=== PATIENT | female | born 1980 | race American Indian/Alaskan Native ===

== ENCOUNTER 2024-10-27 10:55 | Outpatient (AMB) | payer MEDICAID, SELFPAY ==
--- NOTE | 2024-10-27 11:14 | A.OFFVIS_ITS ---
Intake Visit Reasons: overactive bladder Intake Note: New Patient presents for initial visit for urinary frequency and urinary leakage Urology Medications: none Blood Thinner: none PVR: 0ml's Laminating Machine Operator Required: No Accompanied by: Self / Same As Patient Allergies No Known Allergies Allergy (Verified 10/27/24 11:49) Medication List - Last Reconciled 10/27/24 by RENE Jacobs albuterol sulfate 90 mcg/actuation (Ventolin HFA) 2 puffs inhalation Q4-6H PRN budesonide-formoterol 80-4.5 mcg/actuation (Symbicort) 2 puffs inhalation BID ketoconazole 2% appl topical BID PRN silver sulfadiazine 1% (SSD) appl topical DAILY HPI Comments Details: Solange is a very pleasant 44-year-old female patient of Dr. Ritter. She has a past medical history of migraines, endometriosis, moderate persistent allergic asthma, and obesity. She presents to the office today as a new patient for ongoing lower urinary tract symptoms she has been experiencing. In discussion with the patient today she reports noting stress incontinence, urinary urgency, urinary frequency, and episodes of nocturia up to 2-3 times per night. She reports symptoms have been present for approximately 6 months. She does report a history of 5 C-sections. She otherwise denies hematuria, dysuria, foul smelling urine, changes to urinary stream, flank pain, fever, and or chills. In office urinalysis results reviewed with the patient today. PVR 0 mL. We discussed at length potential causes of lower urinary tract symptoms patient was experiencing as well as further workup. We discussed pelvic floor exercises as well as bladder diary. We discussed further treatment options to include pelvic floor therapy, medications, and or in office urodynamics for further assessment evaluation. Will obtain retroperitoneal ultrasound for further assessment evaluation. She otherwise offers no other issues or concerns at this time. [facility] Medical History (Updated 10/27/24 @ 11:54 by RENE Jacobs) History of wheezing History of bronchitis History of migraine History of abnormal cervical Papanicolaou smear Endometriosis Orgasmic headache Moderate persistent allergic asthma Other headache syndrome History of smoking Obesity Surgical History (Updated 10/15/24 @ 08:57 by Cal Butler) History of tubal ligation Hx of cholecystectomy H/O section Review of Systems Const All systems reviewed & are unremarkable except as noted in HPI and below Physical Exam Const General: cooperative, healthy appearing, comfortable, no acute distress, well developed, alert and awake Nutritional Appearance: overweight Orientation/consciousness: patient oriented x3 Limitations: no limitations HEENT Head: Yes normal to inspection, Yes normocephalic and Yes atraumatic Ears: hearing grossly normal bilaterally Eyes General: appearance normal, both eyes and all related structures Neck Neck: Yes normal visual inspection and Yes trachea midline Chest Chest palpation & inspection: normal inspection of the chest Resp Effort & Inspection: normal respiratory effort and able to speak in complete sentences Cardio Rate: regular rate GI Inspection: Yes normal to inspection General: Yes no CVA tenderness Back/Spine/Pelvis Back: no CVA tenderness Skin General skin exam: no rashes or lesions noted Neuro General: patient oriented x3 Extrem General: Yes normal to inspection Psych Appearance: grossly normal and well kempt Mental Status: mental status grossly normal Speech and movement: Normal speech and movement present and Clear speech present Affect: normal affect Attitude: cooperative Thought process: Normal thought process present Thought content: Normal thought content present Insight: Fair insight present (Psych) Judgement: Fair judgement present (Psych) Office Procedures Post Void Residual Post Residual Void Post Void Residual (PVR): 0 [id number]-[id number] Void Residual by ultrasound Results AMB Urinalysis, Automated UA Leukoctes 0 Olamide/uL Last Edit by Cal Butler on 10/27/24 12:05 UA Nitrite Last Edit by Cal Butler on 10/27/24 12:05 UA Urobilinogen 0.2 mg/dL Last Edit by Cal Butler on 10/27/24 12:05 UA Protein 30 mg/dL Last Edit by Cal Butler on 10/27/24 12:05 UA pH 6.0 Last Edit by Cal Butler on 10/27/24 12:05 UA Blood 0 Segundo/uL Last Edit by Cal Butler on 10/27/24 12:05 UA Specific [place] 1.030 Last Edit by Cal Tanyasue on 10/27/24 12:05 UA Ketone Positive Last Edit by Chuyirvingricky Martínezsue on 10/27/24 12:05 UA Bilirubin 1 mg/dL Last Edit by Cal Tanyasue on 10/27/24 12:05 UA Glucose 0 mg/dL Last Edit by Cal Tanyasue on 10/27/24 12:05 Results Reviewed Results Reviewed: Laboratory Last Values Urine pH (Auto) 6.0 10/27/24 12:03 Specific [place] (Auto) 1.030 10/27/24 12:03 Urine Protein (Auto) 30 mg/dL 10/27/24 12:03 Glucose (UA)(Auto) 0 mg/dL 10/27/24 12:03 Urine Ketones (Auto) Positive 10/27/24 12:03 Urine Blood (Auto) 0 Segundo/uL 10/27/24 12:03 Urine Bilirubin (Auto) 1 mg/dL 10/27/24 12:03 Urine Urobilinogen (Auto) 0.2 mg/dL 10/27/24 12:03 Leukocyte Esterase (Auto) 0 Olamide/uL 10/27/24 12:03 Assessment & Plan Assessment & Plan (1) Stress incontinence: Code(s): N39.3 - Stress incontinence (female) (male) Category: Medical (2) Urinary urgency: Code(s): R39.15 - Urgency of urination Category: Medical (3) Urinary frequency: Code(s): R35.0 - Frequency of micturition Category: Medical (4) Nocturia: Code(s): R35.1 - Nocturia Category: Medical Plan In office urinalysis results reviewed with the patient today; as noted above. PVR 0 mL. We discussed obtaining retroperitoneal ultrasound for further assessment evaluation. We discussed bladder triggers/irritants. Discussed importance of limiting fluids 2-3 hours prior to bed to decrease episodes of nocturia. We discussed further intervention to include pelvic floor therapy, medications, and or in office urodynamics for further assessment evaluation. She would like to think about further treatment options that were discussed; information provided Follow-up in 1-3 months with imaging to be completed prior; or sooner with any issues, concerns, and or questions. Orders: Orders US retroperitoneal comp Today N39.3 - Stress incontinence (female) (male) AMB Post Void Residual by ultrasound Today R35.0 - Frequency of micturition AMB Urinalysis Automated Today Z13.9 - Encounter for screening, unspecified Patient Instructions: The patient had an opportunity to ask questions regarding the treatment plan. All questions were answered. Physical exam, labs, and imaging were discussed and reviewed in detail. As well as risks, benefits, and discussion of treatment choices. No major barriers to understanding were identified. The patient expressed understanding and agreement with the above treatment plan. The patient was made aware they should contact our office by phone for worsening of their current condition, the appearance of new symptoms, or with any questions or concerns. Compliance is encouraged with any medications and follow up testing that is ordered. It is a privilege to be allowed the opportunity to participate in? your urological care.? Again, if you have any questions or concerns If you have any questions or concerns please do not hesitate to contact me. The office is [phone]. This note is constructed using voice recognition software. While every effort has been made to ensure accuracy linseed oil temperer errors may have been included. Yours sincerely, RENE Jacobs Coding Level of Care Code New Pt Level 3 (30343) Diagnoses Stress incontinence N39.3 Urinary urgency R39.15 Urinary frequency R35.0 Nocturia R35.1 CPT Codes Post Residual Void - PVR CPT Code: 99231-Cvlc Void Residual by ultrasound ([id number])
== END 2024-10-27 11:51 | disposition home or self-care (01) ==
PROVIDERS: PCP Physician Assistant Medical; Visit Provider Nurse Practitioner Family
DX: N39.3 Stress incontinence (female) (male) (principal); R39.15 Urgency of urination; R35.0 Frequency of micturition; R35.1 Nocturia; Z13.9 Encounter for screening, unspecified
CPT/HCPCS: 99203

== ENCOUNTER → 2024-10-27 10:55 | Outpatient (BNVA) | payer MEDICAID, SELFPAY | PROVIDERS: PCP Physician Assistant Medical; Visit Provider Nurse Practitioner Family | DX: N32.81 Overactive bladder (principal); N39.3 Stress incontinence (female) (male); R39.15 Urgency of urination; R35.0 Frequency of micturition; R35.1 Nocturia | CPT/HCPCS: 51798; 81003; 99212 ==

== ENCOUNTER 2024-12-17 10:43 | Outpatient (REF) | payer MEDICAID, SELFPAY ==
--- NOTE | ~2024-12-17 | US_ITS ---
CLINICAL HISTORY: N39.3 - Stress incontinence (female) (male) US Renal Comparison: None Findings: Right kidney normal size and echotexture, 12.7 cm length. Left kidney normal size and echotexture, 11.8 cm length. No hydronephrosis of either kidney. Normal color Doppler. Urinary bladder is unremarkable. Prevoid volume 460 mL. Postvoid volume 37 mL. Bilateral ureteral jets are visualized. IMPRESSION: No hydronephrosis. Postvoid residual volume of 37 mL. This document has been electronically signed by: Tonya Maldonado MD on 12/18/2024 12:38:58
--- OUTSIDE RECORDS SUMMARY | 2024-12-17 11:21 | XMS_ITS | Encounter Summary ---
Author Organization [facility] Address [address] [place] [address] Care Team Providers Care Steak Sauce Maker Name Role Phone Chiara Ritter Primary Care Provider [phone] Reason for Visit * Reason Onset Date Comments DME 11/19/2024 Nebulizer cherelle e Encounter Details Date Type Department Care Team (Late Contact Info) Description [facility] [address] [phone] Brittanie Little MA DME (Nebulizer machine) Social History Tobacco Use Types Packs/Day Years Used Date Smoking Tobacco: Never Smokeless Tobacco: Never Comments No Sex and Gender Information Value Date Recorded Sex Assigned at Not on file Legal Sex Female 1:51 PM EST Gender Identity Not on file Sexual Orientation Not on file documented as of this encounter Progress Notes * Brittanie Ny MA - 11/19/2024 11:16 AM EST Patient called to informed that her nebulizer machine was sent to [facility] but they not accepting [facility]. Order printed and sent to [facility] patient informed documented in this encounter Plan of Treatment Upcoming Encounters Date Type Department Care Team (Late st Contact Info) Description 01/14/2025 12:30 PM EDT Ancillary Procedure [facility] [address] [place] [phone] 02/20/2025 9:45 AM EDT [facility] [address] [facility] [address] [place] [phone] Ketty Wright MD [address] [place] [address] [address] [place] [address] documented as of this encounter Visit Diagnoses Not on filedocumented in this encounter Care Teams Steak Sauce Maker Relationship Specialty Start Date End Date Chiara Ritter PA [address] [place] [address] PCP - General 08/26/24 documented as of this encounter
--- OUTSIDE RECORDS SUMMARY | 2024-12-17 11:21 | XMS_ITS | Clinical Summary ---
Author Organization [facility] Address [address] [place] [address] Care Team Providers Care Hrbp Name Role Phone Chiara Ritter PA-C Primary Care Provider Source Comments PLEASE NOTE, if this patient is a minor, it may be UNLAWFUL to discuss sensitive information that is contained in these records (such as FAMILY PLANNING, MENTAL HEALTH or SUBSTANCE ABUSE) with the minor patient's parent or other person without the patient's specific authorization.[facility] Allergies No known active allergies Medications cyclobenzaprine (FLEXERIL) 10 mg tablet TK 1 T PO TID PRN 0 9 Active naproxen (NAPROSYN) 500 mg tablet TK 1 T PO BID PRF PAIN 0 9 Active acetaminophen (TYLENOL) 500 mg tabletIndications :Other headache syndrome Take 1 Tab by mouth every 8 (eight) hours as needed for pain DO NOT take more than 3 (three) times in a 24 hour period. 60 Tab 3 9 Active topiramate (TOPAMAX) 50 mg tabletIndications :Other headache syndrome Take 1 Tab by mouth nightly at bedtime 30 Tab 3 0 Active diclofenac sodium (VOLTAREN) 1 % gel MELISSA 4 GRAMS EXT AA TID 0 Active betamethasone dipropionate (DIPROLENE) 0.05 % ointment APPLY TO THE AFFECTED AREA ON HANDS TWICE DAILY FOR TWO WEEKS THEN BREAK FOR ONE WEEK REPEAT NEEDED FLARES 2 Active triamcinolone (KENALOG) 0.1 % cream APPLY TOPICALLY TO THE AFFECTED AREA TWICE DAILY FOR 10 DAYS 2 Active fluticasone propion-salmetero L (AIRDUO RESPICLICK) 232-14 mcg/actuation aepbIndications:H istory of wheezing,Moderate persistent asthma without complication Inhale 1 Inhalation. into the lungs 2 (two) times daily 1 Each 5 3 Active mirabegron ER (MYRBETRIQ) 25 mg [id number]:S tress incontinence Take 1 Tablet by mouth nightly at bedtime for 90 days 30 Tablet 2 3 Active fluoride, sodium, (SF 5000 PLUS) 1.1 % creaIndications:C tay of enamel (incipient) Anderson twice daily with toothpaste then expectorate. Do not rinse. 51 g 3 3 Active ketoconazole (NIZORAL) 2 % cream APPLY TO AFECTED AREAS IN THE GROIN TWICE DAILY NEEDED 4 Active hydrocortisone 1 % cream APPLY TOPICALLY TO THE AFFECTED AREA TWICE DAILY FOR 14 DAYS 3 Active albuterol HFA 90 mcg/actuation inhalerIndication s:Moderate persistent asthma without complication Inhale 2 Puffs into the lungs every 4 to 6 (four to six) hours as needed for wheezing or shortness of breath 18 g 2 4 Active budesonide-formot Anjana (SYMBICORT) 80-4.5 mcg/actuation inhalerIndication s:Moderate persistent asthma with acute exacerbation Inhale 2 Puffs into the lungs 2 (two) times daily 10.2 g 2 4 Active predniSONE (DELTASONE) 20 mg tabletIndications :Moderate persistent asthma with acute exacerbation Take 1 Tablet by mouth once daily 5 Tablet 4 Active Active Problems Problem Noted Date Diagnosed Date History of abnormal cervical Papanicolaou smear 11/16/2022 History of migraine 11/16/2022 H/O bronchitis 11/16/2022 Orgasmic headache 09/28/2020 Moderate persistent asthma 01/23/2020 Other headache syndrome 08/04/2019 Endometriosis 11/04/2018 Obesity (BMI 30-39.9) 10/06/2016 Hx of smoking 10/06/2016 Resolved Problems Problem Noted Date Diagnosed Date Resolved Date History of wheezing 08/04/2019 01/23/20 20 Encounters Date Type Department Care Team Description 10/02/2024 3:20 PM EST Office Visit [address] [address] Chiara Ritter PA-C Moderate persistent asthma with acute exacerbation (Primary Dx) 10/02/2024 Travel from Last 3 Months Immunizations Name Administration Dates Next Due Flu, Preservative Free 08/09/2023,2022,12/20/2021,09/24 Hep B,adult,adjuvanted (HEPLISAV) 08/21/2024,09/2023 INFLUENZA, SEASONAL, INJECTABLE 09/05/2018 INFLUENZA, SEASONAL, INJECTA BLE, PRESERVATIVE FREE 10/06/2016 Influenza (FLUBLOK),recombinant,injectable,prese rvative Free 08/21/2024 Moderna COVID-19 Vaccine, re d cap blue label, 12+ Primary Series 01/21/2022,03/17/2021,02/17/2021 PNEUMOCOCCAL CONJUGATE PCV 2 0 (Prevnar) 08/09/2023 PNEUMOCOCCAL POLYSACCHARIDE PPV23 12/20/2021 TDAP 08/20/2018 Family History Medical History Relation Name Comments No Known Problems Brother No Known Problems Daughter 1 No Known Problems Daughter 2 No Known Problems Daughter 3 Asthma Father Diabetes Father Migraines Maternal Grandmother Cancer Maternal Uncle lung ca Thyroid Disease Mother Cancer Paternal Grandfather colon c a No Known Problems Sister Other (See Comments) Son 1 autism No Known Problems Son 2 Relation Name Status Comments Brother Alive Daughter 1 Alive Daughter 2 Alive Daughter 3 Alive Father Alive Maternal Grandmother Maternal Uncle Mother Alive Paternal Grandfather Sister Alive Son 1 Alive Son 2 Alive Social History Tobacco Use Types Packs/Day Years Used Date Smoking Tobacco: Former Cigarettes Smokeless Tobacco: Former Quit: 2018 Tobacco Cessation:Counseling Given: No Alcohol Use Standard Drinks/Week Comments Yes 0 (1 standard drink = 0.6 oz pur e alcohol) occasionally Social Connections Answer Date Recorded Connectedness 1 04/28/2024 Financial Resource Strain Answer Date R ecorded Financial Resource Strain 1 2023 Stress Answer Date Recorded Stress 1 04/28/2024 Physical Activity Answer Date Recorded Physical Activity 0 06/21/2019 Food Insecurity Answer Date Recorded Food 1 04/28/2024 Transportation Needs Answer Date Record ed Transportation 1 04/28/2024 Housing Stability Answer Date Recorded Housing 2 04/28/2024 Safety and Environment Answer Date Moar rded Safety 1 04/28/2024 Utilities Answer Date Recorded Utilities 1 04/28/2024 Employment Answer Date Recorded Stress 0 01/16/2022 Comments No Sex and Gender Information Value Date Recorded Sex Assigned at Female 08/04/2019 9:04 AM PDT Legal Sex Female 11:36 AM PDT Gender Identity Female 08/04/2019 9:04 AM PDT Sexual Orientation Straight 08/04/2019 9: 04 AM PDT Occupation Industry Job Start Date Job End Date Not on file Not on file Not on file Not on file Last Filed Vital Signs Vital Sign Reading Time Taken Comments Blood Pressure 122/80 10/02/2024 3:46 PM EST Pulse 81 10/02/2024 3:46 PM EST Temperature 36.6 ??C (97.8 ??F) 10/02/2024 3:46 PM ES T Respiratory Rate 16 10/02/2024 3:46 PM EST Oxygen Saturation 97% 10/02/2024 3:46 PM EST Inhaled Oxygen Concentration - - Weight 93.3 kg (205 lb 9.6 oz) 10/02/2024 3:46 P M EST Height 160 cm (5' 3 ) 10/02/2024 3:46 PM EST Body Mass Index 36.42 10/02/2024 3:46 PM EST Plan of Treatment Health Maintenance Due Date Last Done Comments HPV Screening 1981 Hepatitis C Screening 1981 Lipid Screening 1981 HIV Screening 1996 Alcohol and Drug Screen 10/29/2024 04/28/20 24, 08/09/2023, 12/20/2021, Additional history exists Depression Annual Screen 10/29/2024 04/28/2024, 07/29 Dental BW 12/14/2024 12/12/2023, 08/0 10/2022, 04/27/2022 Dental Examination 12/14/2024 12/12/2023, 0 05/29/2023, 04/27/2022 Dental Perio Charting 12/14/2024 12/12/2023, 022 Dental Prophy 12/14/2024 12/12/2023, 04/27/2022 [id number] ( season) 2025 01/21/2022, 03/17/2021, 02/17/2021 Postponed from 06/29/2024 (Patient postponement) Relationship Safety Screening/Counseling 04/28/2025 04/28/2024, 08/09/2023, 12/20/2021, Additional history exists Tobacco Screening 04/28/2025 04/28/2024 Annual Preventive Care Visit 08/21/2025 08/21/2024, 08/09/2023, 11/16/2022, Additional history exists Hypertension Screening (#1) 10/02/2025 Breast Cancer Screening (Mammogram) 11/11/2025 11/11/2024, 11/11/2024 Cervical Cancer Screening 11/16/2025 Pap + HPV 11/16/2025 11/16/2022 Pap Smear 11/16/2025 11/16/2022 Diabetes Screening 08/09/2026 08/09/2023, 08/09/2023 Dental FMX/Pano 05/31/2028 05/29/2023 Imm-DTaP/Tdap/Td (2 - Td or Tdap) 08/20/2028 08/20/2018 Imm-Pneumococcal Completed 08/09/2023, 12/20/2021 Imm-Hepatitis B Completed 08/21/2024, 08/09/2023 Imm-Influenza Completed 08/21/2024, 07/29, 11/16/2022, Additional history exists Cervical Ablation/Cold-Knife Conization Discontinued Cervical Cryotherapy Discontinued Colposcopy Discontinued Endometrial Biopsy Discontinued Excision/Leep Discontinued HPV Genotyping Discontinued Vaginal Pap Discontinued Vulvoscopy Discontinued Procedures Procedure Name Priority Date/Time Associated Diagnosis Comments REFERRAL FOR MAMMOGRAM Routine 11/11/2024 3:00 AM EST Breast cancer screening by mammogram IMAGING SCANNED DOCUMENT 11/05/2024 3:00 AM EST REFERRAL SCANNED DOCUMENT 10/27/2024 3:00 AM EST COMP PERIODONTAL EVALUATION - NEW/EST PATIENT Routine 12/12/2023 9:00 AM EST Encounter for dental examination BITEWINGS - FOUR RADIOGRAPHIC IMAGES Routine 12/12/2023 9:00 AM EST Encounter for dental examination PROPHYLAXIS - ADULT Routine 12/12/2023 9 :00 AM EST Encounter for dental examination PERIODIC ORAL EVALUATION ESTABLISHED PATIENT Routine 12/12/2023 9:00 AM EST Encounter for dental examination COMPREHENSIVE METABOLIC PANEL Routine 08/09/2023 10:04 AM EDT Obesity (BMI 30-39.9) INTRAORAL - COMP SERIES OF RADIOGRAPHIC IMAGES Routine 05/29/2023 11:00 AM EDT Caries of enamel (incipient) Caries Encounter for dental examination THINPREP PAP & HPV MRNA E6/E7 RFLX HPV 16,18/[address]/NG Routine 11/16/2022 1:22 PM EST Papanicolaou test, as part of routine gynecological examination Papanicolaou smear for cervical cancer screening from Last 3 Months or Most Recently Relevant to Health Maintenance Results * REFERRAL FOR MAMMOGRAM (11/11/2024 3:00 AM EST) 11/11/2024 3:00 AM EST us [email or web address] Ritter PA-C IMG RFL MAMMO Final Result * IMAGING SCANNED DOCUMENT (11/05/2024 3:00 AM EST) 11/05/2024 3:00 AM EST us [email or web address] Ritter PA-C SCAN IMAGING Final Result * REFERRAL SCANNED DOCUMENT (10/27/2024 3:00 AM EST) 10/27/2024 3:00 AM EST us [email or web address] Ritter PA-C SCAN REFERRAL Final Result * (ABNORMAL) COMPREHENSIVE METABOLIC PANEL (08/09/2023 10:04 AM EDT) GLUCOSE 98 65 - 139 mg/dL [facility] Comment: ?Non-fasting reference interval UREA NITROGEN (BUN) 11 7 - 25 mg/dL [facility] CREATININE (blood) 0.49(L) 0.50 - 0.99 mg/dL [facility] EGFR 121 > OR = 60 mL/min/1. 73m2 [facility] BUN/CREATININE RATIO 22 6 - 22 (calc) [employer] [facility] SODIUM 137 135 - 146 mmol/L [employer] [facility] POTASSIUM 4.4 3.5 - 5.3 mmol/L [employer] [facility] CHLORIDE 104 98 - 110 mmol/L [employer] [facility] CARBON DIOXIDE 28 20 - 32 mmol/L [employer] [facility] CALCIUM 9.2 8.6 - 10.2 mg/dL [employer] [facility] PROTEIN, TOTAL 7.2 6.1 - 8.1 g/dL [employer] [facility] ALBUMIN 4.0 3.6 - 5.1 g/dL [employer] [facility] GLOBULIN 3.2 1.9 - 3.7 g/dL (calc) [employer] [facility] ALBUMIN/GLOBULI N RATIO 1.3 1.0 - 2.5 (calc) [employer] [facility] BILIRUBIN, TOTAL 0.3 0.2 - 1.2 mg/dL [employer] [facility] ALKALINE PHOSPHATASE 56 31 - 125 U/L [employer] [facility] AST 14 10 - 30 U/L [employer] [facility] ALT 19 6 - 29 U/L [employer] [facility] Blood Blood / Unknown 08/09/2023 1 0:04 AM EDT 08/09/2023 10:04 AM EDT Narrative [facility] - 08/10/2023 1:25 AM EDT FASTING:NO Yanni P[facility] - BLOOD DRAW Edited Result - Final [employer] [address] [address], [employer] [address] [id number] * THINPREP PAP & HPV MRNA E6/E7 RFLX HPV 16,18/[address]/NG (11/16/2022 1:22 PM EST) CHLAMYDIA TRACHOMATIS RNA, TMA NOT DETECTED NOT DETECTED [employer] [facility] NEISSERIA GONORRHOEAE RNA, TMA NOT DETECTED NOT DETECTED [employer] [facility] COMMENT [employer] [facility] CLINICAL INFORMATION See Note [employer] [facility] Comment:ROUTINE EXAM LMP See Note [employer] [facility] Comment:[id number] PREV. PAP [employer] [facility] PREV. BX [employer] [facility] SOURCE See Note [employer] [facility] Comment:Cervix STATEMENT OF ADEQUACY See Note [employer] [facility] Comment: Satisfactory for evaluation. Endocervical/transformation zone component absent. INTERPRETATION/RESU LT See Note [employer] [facility] Comment:Negative for intraep ithelial lesion or malignancy. INFECTION See Note [employer] [facility] Comment: Shift in vaginal johnnie suggestive of bacterial vaginosis. [employer] PRES[employer] TE[employer]ER See Note [facility] [employer] Comment: KN, CT(ASCP) CT screening location: [address] ??[id number] COMMENT [employer] [facility] HPV MRNA E6/E7 Not Detected Not Detected [employer] [facility] Comment: Methodology: Continuous Improvement Intern-Mediated Amplification This assay detects E6/E7 viral messenger RNA (mRNA) from 14 high-risk HPV types (16,18,31,33,35,39,45,51,52,56,58,59,66,68). Cervical sources are required for HPV testing. If a vaginal source from a patient who has had a total hysterectomy with removal of cervix was submitted, please contact the testing laboratory for alternative testing options. For additional information, please refer to http://[employer]/faq/LUE296b8 (This link if provided for information/ educational purposes only.) Swab Endocervical structure / Unknown 11/16/2022 1:22 PM EST 11/17/2022 6:51 AM EST Narrative [employer] [facility] - 11/24/2022 8:30 PM EST EXPLANATORY NOTE: The Pap is a screening test for cervical cancer. It is not a diagnostic test and is subject to false negative and false positive results. It is most reliable when a satisfactory sample, regularly obtained, is submitted with relevant clinical findings and history, and when the Pap result is evaluated along with historic and current clinical information. The analytical performance characteristics of this assay, when used to test SurePath(TM) specimens have been determined by [employer]. The modifications have not been cleared or approved by the FDA. This assay has been validated pursuant to the CLIA regulations and is used for clinical purposes. For additional information, please refer to https://[employer]/faq/FXM118 (This link is being provided for information/ educational purposes only.) Chiara Ritter PA-C LAB - NO BLOOD DRAW Final Re sult [facility] [address] [facility] [address] [place] [address], [facility] [address] [facility] ([address]) [place] [address] from Last 3 Months or Most Recently Relevant to Health Maintenance Insurance HEALTH SAF[employer]Y NET DENTAL [facility] [place] [address] [employer] Care Teams Hrbp Relationship Specialty Start Date End Date Chiara Ritter PA-C [address] [place] [address] PCP - General FAMILY MEDICINE PA 09/05/21
--- OUTSIDE RECORDS SUMMARY | 2024-12-17 11:21 | XMS_ITS | Clinical Summary ---
Author Organization [facility] Address [address] [place] [address] Phone Care Team Providers Care Batteryman Name Role Phone Chiara Ritter Primary Care Provider [phone] Allergies Active Allergy Reactions Criticality Noted Date Comments Dermatitis Antigens 10/14/2024 Medications acetaminophen (TYLENOL) 500 mg tablet Take 1 tablet (500 mg total) by mouth every 8 hours as needed. 9 Active albuterol HFA (PROAIR HFA ; PROVENTIL HFA ; VENTOLIN HFA) 90 mcg/actuation inhaler Inhale 2 puffs by mouth. 4 Active budesonide-form oteroL (SYMBICORT) 80-4.5 mcg/actuation inhaler Inhale 2 puffs by mouth 2 times daily. 4 Active fluoride, sodium, 1.1 % cream [place] twice daily with toothpaste then expectorate. Do not rinse. 3 Active albuterol 2.5 mg /3 mL (0.083 %) nebulizer solution Take 3 mL (2.5 mg total) by nebulization every 6 (six) hours if needed for wheezing. 360 mL 11 5 11/05/19 26 Active Encounters Date Type Department Care Team Description 11/[facility] [address] [place] [address] Brittanie Little [place] DME (Nebulizer machine) 11/11/2024 9:36 AM EST - 11/11/2024 11:59 PM EST Hospital Encounter [facility] [address] [place] [address] Encounter for screening mammogram for malignant neoplasm of breast Discharge Disposition: Home or Self Care 11/05/2024 10:44 AM EST - 11/05/2024 11:59 PM EST Hospital Encounter [facility] Xray [address] [place] [address] Moderate persistent asthma, unspecified whether complicated Discharge Disposition: Home or Self Care 11/05/2024 10:30 AM EST Lab Draw Station - 175 [facility] 175 [facility] [address] [place] [phone] Asthma (Primary Dx); Moderate persistent asthma, unspecified whether complicated; Dyspnea, unspecified type; Palpitation 11/05/2024 10:15 AM EST Office Visit Orthopedic Surgery [facility] [address] [address] Lei Brizuela DPM Pain in toes of both feet (Primary Dx) 11/05/2024 9:00 AM EST Consult Pulmonolgy - [place] [address] [phone] Ketty Wright MD Moderate persistent asthma, unspecified whether complicated (Primary Dx); Dyspnea, unspecified type; Palpitation; Post-COVID syndrome 11/05/2024 8:30 AM EST [facility] [address] [place] [phone] Paco Camacho Shortness of breath 10/14/2024 9:30 AM EST Office Visit Orthopedic Surgery [facility] [address] [address] Lei Brizuela DPM Cellulitis of right foot (Primary Dx); Cellulitis of left foot; Ingrowing right great toenail; Ingrowing left great toenail from Last 3 Months Social History Tobacco Use Types Packs/Day Years Used Date Smoking Tobacco: Never Smokeless Tobacco: Never Comments No Sex and Gender Information Value Date Recorded Sex Assigned at Not on file Legal Sex Female 1:51 PM EST Gender Identity Not on file Sexual Orientation Not on file Obstetrics History Para Term AB IAB SAB Ectopic Multiple Livin g Live Births 5 Last Filed Vital Signs Vital Sign Reading Time Taken Comments Blood Pressure 100/70 11/05/2024 9:00 AM EST Pulse 71 11/05/2024 9:00 AM EST Temperature - - Respiratory Rate 19 11/05/2024 9:00 AM EST Oxygen Saturation 98% 11/05/2024 9:00 AM EST Inhaled Oxygen Concentration - - Weight 88 kg (194 lb) 11/11/2024 9:48 AM EST Height 160 cm (5' 3 ) 11/11/2024 9:48 AM EST Body Mass Index 34.37 11/11/2024 9:48 AM EST Plan of Treatment Upcoming Encounters Date Type Department Care Team (Late st Contact Info) Description 01/14/2025 12:30 PM EDT Ancillary Procedure [facility] [address] [facility] [place] [address] [place] [address] 02/20/2025 9:45 AM EDT Office Visit Pulmonolgy - [place] 175 [facility] [address] [place] [address] Ketty Wright MD 175 [facility] [address] [place] [address] Health Maintenance Due Date Last Done Comments Cervical Cancer Screening: Pap Smear 2002 Cholesterol Screening (Lipid Panel) 09/26/2022 HIV Screening 09/26/2022 Hepatitis C Screening 09/26/2022 Social Influencers of Health Screening 09/26/2022 COVID-19 Vaccine ( season) 2024 01/21/2022, 03/17/2021, 02/17/2021 Depression Screening 04/28/2025 04/28/2024 Breast Cancer Screening 11/11/2026 11/11/2024 DTaP,Tdap,and Td Vaccines (2 - Td or Tdap) 08/20/2028 08/20/2018 Pneumococcal Vaccine: Pediatrics (0 to 5 Years) and At-Risk Patients (6 to 64 Years) Completed 08/09/2023, 12/20/2021 Hepatitis B Vaccines Completed 08/21/2024, 10/12/20 23 Influenza Vaccine Completed 08/21/2024, , 11/16/2022, Additional history exists HIB Vaccines Aged Out No longer eligi ble based on patient's age to complete this topic HPV Vaccines Aged Out No longer eligi ble based on patient's age to complete this topic Hepatitis A Vaccines Aged Out No long er eligible based on patient's age to complete this topic IPV Vaccines Aged Out No longer eligi ble based on patient's age to complete this topic MMR Vaccines Aged Out No longer eligi ble based on patient's age to complete this topic Meningococcal ACWY Vaccine Aged Out N o longer eligible based on patient's age to complete this topic Meningococcal B Vacine Aged Out No lo nger eligible based on patient's age to complete this topic RSV Immunization Patients Under 20 months Aged Out No longer eligible based on patient's age to complete this topic Varicella Vaccines Aged Out No longer eligible based on patient's age to complete this topic Procedures Procedure Name Priority Date/Time Associated Diagnosis Comments MG MAMMO DIGITAL SCREENING W CHAVEZ BILAT Routine 11/11/2024 9:59 AM EST Encounter for screening mammogram for malignant neoplasm of breast XR CHEST 2 VIEWS Routine 11/05/2024 10:5 6 AM EST Moderate persistent asthma, unspecified whether complicated CBC WITH AUTO DIFFERENTIAL Routine 11/05/2024 10:27 AM EST Moderate persistent asthma, unspecified whether complicated IMMUNOGLOBULIN IGE Routine 11/05/2024 10 :27 AM EST Asthma D-DIMER STAT 11/05/2024 10:27 AM EST Dyspnea, unspecified type Palpitation CBC AND DIFFERENTIAL Routine 11/05/2024 10:27 AM EST Moderate persistent asthma, unspecified whether complicated HCG QUALITATIVE, URINE Routine 10:27 AM EST Moderate persistent asthma, unspecified whether complicated PULMONARY FUNCTION TESTING Routine 11/05/2024 9:36 AM EST Shortness of breath from Last 3 Months Results * MG Mammo Digital Screening w Chavez bilat (11/11/2024 9:59 AM EST) Anatomical Region Laterality Modality Breast Bilateral Mammography 11/12/2024 1:29 PM EST Impressions 11/12/2024 1:34 PM EST No mammographic evidence of malignancy. ?? No suspicious interval change. A negative mammogram in the presence of a clinically suspicious palpable abnormality does not preclude the possibility of malignancy or alter the indications for biopsy. ASSESSMENT: ?? BI-RADS 1: NEGATIVE RECOMMENDATION(S): 1: Routine screening mammogram BILATERAL in 1 year. -------- FINAL REPORT -------- Dictated By: Josh Espinal Dictated Date: 11/12/2024 13:29 ET Assigned Physician: Josh Espinal Reviewed and Electronically Signed By: Josh Espinal Signed Date: 11/12/2024 13:34 ET Workstation ID: [id number] Transcribed By: Self Edit Transcribed Date: 11/12/2024 13:29 ET Narrative 11/12/2024 1:34 PM EST EXAM: ??SCREENING MAMMOGRAPHY, BILATERAL HISTORY: ??SCREENING. ??No additional history. COMPARISON: ??09/10/2023 TECHNIQUE: Synthesized CC and MLO projections of each breast. ??Tomosynthesis of each breast in the CC and MLO projections. ADDITIONAL IMAGING: None Computer-aided detection was employed with the iCAD ??profound AI 3-D. TISSUE DENSITY: There are scattered areas of fibroglandular density. (BI-RADS category B) FINDINGS: RIGHT BREAST: No suspicious mass. No suspicious calcification. No distortion. ?? No additional suspicious right breast findings LEFT BREAST: No suspicious mass. No suspicious calcification. No distortion. ?? No additional suspicious left breast findings Procedure Note Josh Espinal MD - 11/12/2024 EXAM: SCREENING MAMMOGRAPHY, BILATERAL HISTORY: SCREENING. No additional history. COMPARISON: 09/10/2023 TECHNIQUE: Synthesized CC and MLO projections of each breast.Tomosynthesis of each breast in the CC and MLO projections. ADDITIONAL IMAGING: None Computer-aided detection was employed with the iCAD profound AI 3-D. TISSUE DENSITY: There are scattered areas of fibroglandular density.(BI-RADS category B) FINDINGS: RIGHT BREAST: No suspicious mass. No suspicious calcification. No distortion. Noadditional suspicious right breast findings LEFT BREAST: No suspicious mass. No suspicious calcification. No distortion. Noadditional suspicious left breast findings IMPRESSION: No mammographic evidence of malignancy. No suspicious interval change. A negative mammogram in the presence of a clinically suspicious palpableabnormality does not preclude the possibility of malignancy or alter theindications for biopsy. ASSESSMENT: BI-RADS 1: NEGATIVE RECOMMENDATION(S): 1: Routine screening mammogram BILATERAL in 1 year. -------- FINAL REPORT -------- Dictated By: Josh Espinal Dictated Date: 11/12/2024 13:29 ET Assigned Physician: Josh Espinal Reviewed and Electronically Signed By: Josh Espinal Signed Date: 11/12/2024 13:34 ET Workstation ID: [id number] Transcribed By: Self Edit Transcribed Date: 11/12/2024 13:29 ET us Robert Parrish MD IMG BI PROCEDURES Final Result * XR Chest 2 Views (11/05/2024 10:56 AM EST) Anatomical Region Laterality Modality Body Radiographic Natalia ging 11/05/2024 11:0 2 AM EST Impressions 11/05/2024 11:03 AM EST Normal examination. No change since the prior study performed 01/26/2017. Code 64803 -------- FINAL REPORT -------- Dictated By: Tacos Moreno Dictated Date: 11/05/2024 11:02 ET Assigned Physician: Tacos Moreno Reviewed and Electronically Signed By: Tacos Moreno Signed Date: 11/05/2024 11:03 ET Workstation ID: [id number] Transcribed By: Self Edit Transcribed Date: 11/05/2024 11:02 ET Narrative 11/05/2024 11:03 AM EST HISTORY: The patient is a 44-year-old female with cough. FINDINGS: PA and lateral radiographs of the chest demonstrate normal appearance of the bony structures. The cardiac and mediastinal contours are within normal limits. The lungs and costophrenic angles are clear. Procedure Note Tacos Moreno MD - 11/05/2024 HISTORY: The patient is a 44-year-old female with cough. FINDINGS: PA and lateral radiographs of the chest demonstrate normalappearance of the bony structures. The cardiac and mediastinal contoursare within normal limits. The lungs and costophrenic angles are clear. IMPRESSION: Normal examination. No change since the prior study performed 01/26/2017. Code 81659 -------- FINAL REPORT -------- Dictated By: Tacos Moreno Dictated Date: 11/05/2024 11:02 ET Assigned Physician: Tacos Moreno Reviewed and Electronically Signed By: Tacos Moreno Signed Date: 11/05/2024 11:03 ET Workstation ID: [id number] Transcribed By: Self Edit Transcribed Date: 11/05/2024 11:02 ET Ketty Wright MD IMG XR PROCEDURES Final Result * (ABNORMAL) CBC auto differential (11/05/2024 10:27 AM EST) WBC 7.7 4.8 - 10.8 K/mcL LAB HEMETOLOGY METHOD 11/05/2024 2:38 PM [facility] RBC 4.90(H) 3.80 - 4.80 M/mcL LAB HEMETOLOGY METHOD 11/05/2024 2:38 PM [facility] Hemoglobin 13.9 11.5 - 16.0 g/dL LAB HEMETOLOGY METHOD 11/05/2024 2:38 PM [facility] Hematocrit 43.6 35.0 - 47.0 % LAB HEMETOLOGY METHOD 11/05/2024 2:38 PM [facility] MCV 88.6 79.0 - 98.0 FL LAB HEMETOLOGY METHOD 11/05/2024 2:38 PM [facility] MCH 28.3 27.0 - 32.0 pcg LAB HEMETOLOGY METHOD 11/05/2024 2:38 PM [facility] MCHC 31.9(L) 32.0 - 37.0 g/dL LAB HEMETOLOGY METHOD 11/05/2024 2:38 PM [facility] RDW 13.2 11.0 - 15.0 % LAB HEMETOLOGY METHOD 11/05/2024 2:38 PM [facility] Platelets 391 130 - 400 K/mcL LAB HEMETOLOGY METHOD 11/05/2024 2:38 PM [facility] MPV 9.3 7.0 - 11.0 FL LAB HEMETOLOGY METHOD 11/05/2024 2:38 PM [facility] NRBC 0.0 <1.0 % LAB HEMETOLOGY METHOD 11/05/2024 2:38 PM [facility] NRBC Absolute 0.00 <0.10 K/mcL LAB HEMETOLOGY METHOD 11/05/2024 2:38 PM [facility] Neutrophils Relative 53.5 % LAB HEMETOLOGY METHOD 11/05/2024 2:38 PM [facility] Lymphocytes Relative 34.6 % LAB HEMETOLOGY METHOD 11/05/2024 2:38 PM [facility] Monocytes Relative 8.2 % LAB HEMETOLOGY METHOD 11/05/2024 2:38 PM [facility] Eosinophils Relative 3.0 % LAB HEMETOLOGY METHOD 11/05/2024 2:38 PM [facility] Basophils Relative 0.4 % LAB HEMETOLOGY METHOD 11/05/2024 2:38 PM [facility] Immature Granulocytes Relative 0.3 % LAB HEMETOLOGY METHOD 11/05/2024 2:38 PM [facility] Neutrophils Absolute 4.14 1.50 - 7.00 K/mcL LAB HEMETOLOGY METHOD 11/05/2024 2:38 PM EST [facility] Lymphocytes Absolute 2.67 1.00 - 5.00 K/mcL LAB HEMETOLOGY METHOD 11/05/2024 2:38 PM EST [facility] Monocytes Absolute 0.63 0.20 - 1.00 K/mcL LAB HEMETOLOGY METHOD 11/05/2024 2:38 PM EST [facility] Eosinophils Absolute 0.23 0.00 - 0.50 K/mcL LAB HEMETOLOGY METHOD 11/05/2024 2:38 PM EST [facility] Basophils Absolute 0.03 0.00 - 0.20 K/mcL LAB HEMETOLOGY METHOD 11/05/2024 2:38 PM [facility] Immature Granulocytes Absolute 0.02 0.00 - 0.03 K/mcL LAB HEMETOLOGY METHOD 11/05/2024 2:38 PM EST [facility] Blood Venous blood specimen / Unknown Venipuncture / Unknown 11/05/2024 10:27 AM EST 11/05/2024 10:27 AM EST us Ketty Wright MD LAB BLOOD ORDERABLES Final Resul t Performing Organization Address City/[facility]/ZIP Co de Phone Number [facility] [address] [place] [address], [place] [phone] * HCG qualitative, urine (11/05/2024 10:27 AM EST) Preg Test, Ur Negative Negative 11/05/2024 1:56 PM EST [facility] Urine Urine specimen obtained by clean catch procedure / Unknown Non-blood Collection / Unknown 11/05/2024 10:27 AM EST 11/05/2024 10:27 AM EST Ketty Wright MD LAB URINE ORDERABLES Final Resul t [facility] [address] [place] [address], [place] [phone] * D-Dimer (11/05/2024 10:27 AM EST) D-Dimer, Quant (D-DU) <150 <=230 ng/mL DDU LAB COAGULATION METHOD 11/05/2024 12:14 PM EST [facility] Blood Venous blood specimen / Unknown Venipuncture / Unknown 11/05/2024 10:27 AM EST 11/05/2024 10:27 AM EST Narrative [facility] - 11/05/2024 12:14 PM EST D-Dimer <230 ng/mL (D-Dimer units) is the threshold for exclusion of DVT/PE. D-Dimer may be elevated in: Critically ill, severely infected, trauma patients, DIC, acute CVA, acute NE, unstable angina, AF, old age, , and smoking. D-Dimer may be decreased with: Initiation of heparin therapy and oral anticoagulants. Ketty Wright MD LAB BLOOD ORDERABLES Final Resul t Performing Organization Address City/[facility]/ZIP Co de Phone Number [facility] [address] [place] [address], [place] [phone] * (ABNORMAL) Immunoglobulin IgE (11/05/2024 10:27 AM EST) Pathologist [facility] IgE 695.7(H) 0.0 - 158.0 I Unit/mL LAB CHEMISTRY METHOD 11/05/2024 2:30 PM EST [facility] Blood Venous blood specimen / Unknown Venipuncture / Unknown 11/05/2024 10:27 AM EST 11/05/2024 10:27 AM EST us Ketty Wright MD LAB BLOOD ORDERABLES Final Resul t Performing Organization Address [facility]/ZIP Co de Phone Number [facility] [address] [place] [address], [place] [phone] * Pulmonary function testing: Carbon Monoxide Diffusing Capacity, Nitrogen Wash Out, Spirometry with Bronchodilator, Vital Capacity Test, Nitric Oxide Gas Determination (11/05/2024 9:36 AM EST) Impressions Ketty Wright MD - 11/05/2024 9:36 AM EST FEV1/FVC 86%. FEV1 2.24 at 78%. FVC 74%. Good bronchodilator response at 13% change. TLC 98%. RV 130%. DLCO 98%. Mild obstruction w/ good bronchodilator response and air trapping. ??No restriction. ??No decrease in diffusion. Finding consistent with mild obstruction with reversibility or asthma/reactive airway disease. NIOX 38 ppb. us Ketty Wright MD PFT ORDERABLES Final Result from Last 3 Months Insurance MEDICAID - [place] Care Teams Batteryman Relationship Specialty Start Date End Date Chiara iRtter PA [address] [place] [address] PCP - General 08/26/24
== END 2024-12-17 10:44 | disposition home or self-care (01) ==
LOC: HO.US 10:43
PROVIDERS: PCP Physician Assistant Medical; Visit Provider Nurse Practitioner Family
DX: N39.3 Stress incontinence (female) (male) (principal)
CPT/HCPCS: 76770

== ENCOUNTER → 2024-12-17 10:44 | Outpatient (BNV) | payer MEDICAID, SELFPAY | PROVIDERS: PCP Physician Assistant Medical; Visit Provider Radiology Diagnostic Radiology | DX: N39.43 Post-void dribbling (principal) | CPT/HCPCS: 76770 ==

== ENCOUNTER 2024-12-31 11:07 | Outpatient (AMB) | payer MEDICAID, SELFPAY ==
--- NOTE | 2024-12-31 11:28 | A.OFFVIS_ITS ---
Intake Visit Reasons: 2m/US/PVR(set) Intake Note: Patient presents for follow up visit for urinary frequency, urinary leakage, and ultrasound results Urology Medications: none Blood Thinner: none PVR: 0ml's Caddy Packer Required: No Accompanied by: Unknown Allergies No Known Allergies Allergy (Verified 12/31/24 12:12) Medication List - Last Reconciled 12/31/24 by RENE Jacobs albuterol sulfate 90 mcg/actuation (Ventolin HFA) 2 puffs inhalation Q4-6H PRN budesonide-formoterol 80-4.5 mcg/actuation (Symbicort) 2 puffs inhalation BID ketoconazole 2% appl topical BID PRN oxybutynin chloride ER 10 mg PO DAILY 30 days silver sulfadiazine 1% (SSD) appl topical DAILY HPI Comments Details: Solange is a very pleasant 44-year-old female patient of Dr. Ritter who was accompanied by his significant other at today's office visit. She has a past medical history of migraines, endometriosis, moderate persistent allergic asthma, and obesity. She presents to the office today for follow-up. Of note, patient was seen approximately 4 months ago as a new patient for ongoing lower urinary tract symptoms she has been experiencing at which time a retroperitoneal ultrasound was ordered for further assessment evaluation in discussion regarding potential causes of lower urinary tract symptoms patient was experiencing was discussed. Recent retroperitoneal ultrasound results reviewed with the patient today. Bilateral kidneys are normal in size and echotexture. No hydronephrosis or renal calculi bilaterally. The bladder is unremarkable. Pre void bladder volume is approximately 460 mL. Postvoid bladder volume is approximately 40 mL. She does have a previous history of 5 sections. She continues to reports noting stress incontinence, urinary urgency, urinary frequency, and e pisodes of nocturia up to 2-3 times per night. She reports symptoms have been present for approximately 6 months. She discusses that although she experiences multiple lower urinary tract symptoms she feels nocturia is most bothersome. She does report a history of 5 C-sections. She otherwise denies hematuria, dysuria, foul smelling urine, changes to urinary stream, flank pain, fever, and or chills. In office urinalysis results reviewed with the patient today. PVR 0 mL. We discussed at length potential causes of lower urinary tract symptoms patient was experiencing as well as further workup. We discussed pelvic floor exercises as well as bladder diary. We discussed further treatment options to include pelvic floor therapy, medications, and or in office urodynamics for further assessment evaluation. She otherwise offers no other issues or concerns at this time. [facility] Medical History History of wheezing History of bronchitis History of migraine History of abnormal cervical Papanicolaou smear Endometriosis Orgasmic headache Moderate persistent allergic asthma Other headache syndrome History of smoking Obesity Surgical History History of tubal ligation Hx of cholecystectomy H/O section Review of Systems Const All systems reviewed & are unremarkable except as noted in HPI and below Physical Exam Const General: cooperative, healthy appearing, comfortable, no acute distress, well developed, alert and awake Nutritional Appearance: overweight Orientation/consciousness: patient oriented x3 Limitations: no limitations HEENT Head: Yes normal to inspection, Yes normocephalic and Yes atraumatic Ears: hearing grossly normal bilaterally Eyes General: appearance normal, both eyes and all related structures Neck Neck: Yes normal visual inspection and Yes trachea midline Chest Chest palpation & inspection: normal inspection of the chest Resp Effort & Inspection: normal respiratory effort and able to speak in complete sentences Cardio Rate: regular rate GI Inspection: Yes normal to inspection General: Yes no CVA tenderness Back/Spine/Pelvis Back: no CVA tenderness Skin General skin exam: no rashes or lesions noted Neuro General: patient oriented x3 Extrem General: Yes normal to inspection Psych Appearance: grossly normal and well kempt Mental Status: mental status grossly normal Speech and movement: Normal speech and movement present and Clear speech present Affect: normal affect Attitude: cooperative Thought process: Normal thought process present Thought content: Normal thought content present Insight: Fair insight present (Psych) Judgement: Fair judgement present (Psych) Office Procedures Post Void Residual Post Residual Void Post Void Residual (PVR): 0 31145-[id number] Void Residual by ultrasound Results AMB Urinalysis, Automated UA Leukoctes 15 Olamide/uL Last Edit by Cal Butler on 12/31/24 12:05 UA Nitrite Last Edit by Cal Butler on 12/31/24 12:05 UA Urobilinogen 0.2 mg/dL Last Edit by Cal Butler on 12/31/24 12:05 UA Protein 15 mg/dL Last Edit by Tickadeowen Butler on 12/31/24 12:05 UA pH 5.5 Last Edit by Tickadeowen Butler on 12/31/24 12:05 UA Blood 0 Segundo/uL Last Edit by [employer] on 12/31/24 12:05 UA Specific [place] 1.025 Last Edit by Tickadeowen Butler on 12/31/24 12:05 UA Ketone Last Edit by Tickadeowen Butler on 12/31/24 12:05 UA Bilirubin 1 mg/dL Last Edit by Cal Butler on 12/31/24 12:05 UA Glucose 0 mg/dL Last Edit by Tickadeowen Butler on 12/31/24 12:05 Results Reviewed Results Reviewed: Laboratory Last Values Urine pH (Auto) 5.5 12/31/24 12:04 Specific [place] (Auto) 1.025 12/31/24 12:04 Urine Protein (Auto) 15 mg/dL 12/31/24 12:04 Glucose (UA)(Auto) 0 mg/dL 12/31/24 12:04 Urine Blood (Auto) 0 Segundo/uL 12/31/24 12:04 Urine Bilirubin (Auto) 1 mg/dL 12/31/24 12:04 Urine Urobilinogen (Auto) 0.2 mg/dL 12/31/24 12:04 Leukocyte Esterase (Auto) 15 Olamide/uL 12/31/24 12:04 Date of Service: 12/17/24 US Renal Comparison: None Findings: Right kidney normal size and echotexture, 12.7 cm length. Left kidney normal size and echotexture, 11.8 cm length. No hydronephrosis of either kidney. Normal color Doppler. Urinary bladder is unremarkable. Prevoid volume 460 mL. Postvoid volume 37 mL. Bilateral ureteral jets are visualized. IMPRESSION: No hydronephrosis. Postvoid residual volume of 37 mL. Assessment & Plan Assessment & Plan (1) Nocturia: Code(s): R35.1 - Nocturia Category: Medical (2) Urinary frequency: Code(s): R35.0 - Frequency of micturition Category: Medical (3) Urinary urgency: Code(s): R39.15 - Urgency of urination Category: Medical (4) Stress incontinence: Code(s): N39.3 - Stress incontinence (female) (male) Category: Medical Plan In office urinalysis results reviewed with the patient today; as noted above. PVR 0 mL. Recent retroperitoneal ultrasound results reviewed with the patient today. We discussed bladder triggers/irritants. Discussed importance of limiting fluids 2-3 hours prior to bed to decrease episodes of nocturia. We discussed further intervention to include pelvic floor therapy, medications, and or in office urodynamics for further assessment evaluation. Start oxybutynin as discussed and prescribed. Follow-up in 1-3 months with imaging to be completed prior; or sooner with any issues, concerns, and or questions. Orders: Orders AMB Urinalysis Automated Today Z13.9 - Encounter for screening, unspecified AMB Post Void Residual by ultrasound Today R35.0 - Frequency of micturition Medications: New oxybutynin chloride ER 10 mg PO DAILY 30 tabs 3RF 30 days N32.81 - Overactive bladder Patient Instructions: The patient had an opportunity to ask questions regarding the treatment plan. All questions were answered. Physical exam, labs, and imaging were discussed and reviewed in detail. As well as risks, benefits, and discussion of treatment choices. No major barriers to understanding were identified. The patient expressed understanding and agreement with the above treatment plan. The patient was made aware they should contact our office by phone for worsening of their current condition, the appearance of new symptoms, or with any questions or concerns. Compliance is encouraged with any medications and follow up testing that is ordered. It is a privilege to be allowed the opportunity to participate in? your urological care.? Again, if you have any questions or concerns If you have any questions or concerns please do not hesitate to contact me. The office is [phone]. This note is constructed using voice recognition software. While every effort has been made to ensure accuracy silica mixer operator errors may have been included. Yours sincerely, Gail Cho, FITNESS TRAINER-BC Coding Level of Care Code Est Pt Level 4 (91620) Diagnoses Nocturia R35.1 Urinary frequency R35.0 Urinary urgency R39.15 Stress incontinence N39.3 CPT Codes Post Residual Void - PVR CPT Code: 78735-Nrer Void Residual by ultrasound ([id number])
--- OUTSIDE RECORDS SUMMARY | 2024-12-31 13:25 | XMS_ITS | Clinical Summary ---
Author Organization [facility] Address [address] [place] [address] Care Team Providers Care Mud Mill Tender Name Role Phone Chiara Ritter PA-C Primary Care Provider [phone] Source Comments PLEASE NOTE, if this patient [...] 3 Active mirabegron ER (MYRBETRIQ) 25 mg [id number]:S tress incontinence Take 1 Tablet by mouth nightly at bedtime for 90 days 30 Tablet 2 3 Active fluoride, sodium, (SF 5000 PLUS) 1.1 % creaIndications:C tay of enamel (incipient) [place] twice daily with toothpaste then expectorate. Do [...] Description 10/02/2024 3:20 PM EST Office Visit [address] [address] Chiara Ritter PA-C Moderate persistent [...] 2 04/28/2024 Safety and Environment Answer Date Omar rded Safety 1 04/28/2024 Utilities Answer Date [...] 12/12/2023, 022 Dental Prophy 12/14/2024 12/12/2023, 04/27/2022 [id number] ( season) 2025 01/21/2022, 03/17/2021, 02/17/2021 Postponed [...] Procedure Name Priority Date/Time Associated Diagnosis Comments IMAGING SCANNED DOCUMENT 12/17/2024 3:00 AM EST IMAGING SCANNED DOCUMENT 12/17/2024 3:00 AM EST REFERRAL FOR MAMMOGRAM Routine 11/11/2024 3:00 AM [...] Recently Relevant to Health Maintenance Results * IMAGING SCANNED DOCUMENT (12/17/2024 3:00 AM EST) Only the most recent of3 resultswithin the time period is included. 12/17/2024 3:00 AM EST Oesiar Ritter PA-C SCAN IMAGING Final Result * REFERRAL FOR MAMMOGRAM (11/11/2024 3:00 AM EST) 11/11/2024 3:00 AM EST Oesiar Ritter PA-C IMG RFL MAMMO Final Result * REFERRAL SCANNED DOCUMENT (10/27/2024 3:00 AM EST) 10/27/2024 3:00 AM EST Oesiar Ritter PA-C SCAN REFERRAL Final Result * (ABNORMAL) COMPREHENSIVE METABOLIC PANEL (08/09/2023 10:04 AM EDT) GLUCOSE 98 65 - 139 mg/dL [facility] Comment: ?Non-fasting reference interval UREA NITROGEN (BUN) 11 7 - 25 mg/dL [facility] CREATININE (blood) 0.49(L) 0.50 - 0.99 mg/dL [facility] EGFR 121 > OR = 60 mL/min/1. 73m2 [facility] BUN/CREATININE RATIO 22 6 - 22 (calc) [facility] SODIUM 137 135 - 146 mmol/L [facility] POTASSIUM 4.4 3.5 - 5.3 mmol/L [facility] CHLORIDE 104 98 - 110 mmol/L [facility] CARBON DIOXIDE 28 20 - 32 mmol/L [facility] CALCIUM 9.2 8.6 - 10.2 mg/dL [facility] PROTEIN, TOTAL 7.2 6.1 - 8.1 g/dL [facility] ALBUMIN 4.0 3.6 - 5.1 g/dL [facility] GLOBULIN 3.2 1.9 - 3.7 g/dL (calc) [facility] ALBUMIN/GLOBULI N RATIO 1.3 1.0 - 2.5 (calc) [facility] BILIRUBIN, TOTAL 0.3 0.2 - 1.2 mg/dL [facility] ALKALINE PHOSPHATASE 56 31 - 125 U/L [facility] AST 14 10 - 30 U/L [facility] ALT 19 6 - 29 U/L [facility] Blood Blood / Unknown 08/09/2023 1 0:04 AM EDT 08/09/2023 10:04 AM EDT Narrative [facility] - 08/10/2023 1:25 AM EDT FASTING:NO Yanni PEREZ LAB - BLOOD DRAW Edited Result - Final [facility] [address] [address], [facility] [address] [address] * THINPREP PAP & HPV MRNA E6/E7 RFLX HPV 16,18/[address]/NG (11/16/2022 1:22 PM EST) CHLAMYDIA TRACHOMATIS RNA, TMA NOT DETECTED NOT DETECTED [facility] NEISSERIA GONORRHOEAE RNA, TMA NOT DETECTED NOT DETECTED [facility] COMMENT [facility] CLINICAL INFORMATION See Note [facility] Comment:ROUTINE EXAM LMP See Note [facility] Comment:[id number] PREV. PAP [facility] PREV. BX [facility] SOURCE See Note [facility] Comment:Cervix STATEMENT OF ADEQUACY See Note [facility] Comment: Satisfactory for evaluation. Endocervical/transformation zone component absent. INTERPRETATION/RESU LT See Note [facility] Comment:Negative for intraep ithelial lesion or malignancy. INFECTION See Note [facility] Comment: Shift in vaginal johnnie suggestive of bacterial vaginosis. CHICKEN HANGER See Note [facility] [employer] [facility] Comment: KN, CT(ASCP) CT screening location: [address] ??[address] COMMENT [facility] HPV MRNA E6/E7 Not Detected Not Detected [facility] Comment: Methodology: Sales Engagement Manager-Mediated Amplification This assay detects E6/E7 viral messenger RNA (mRNA) from 14 high-risk HPV types (16,18,31,33,35,39,45,51,52,56,58,59,66,68). Cervical sources are required for HPV testing. If a vaginal source from a patient who has had a total hysterectomy with removal of cervix was submitted, please contact the testing laboratory for alternative testing options. For additional information, please refer to http://[employer].Gameotic/faq/CPU013d0 (This link if provided for information/ educational purposes only.) Swab Endocervical structure / Unknown 11/16/2022 1:22 PM EST 11/17/2022 6:51 AM EST Narrative [facility] - 11/24/2022 8:30 PM EST EXPLANATORY [...] test SurePath(TM) specimens have been determined by [employer]. The modifications have not been cleared or approved by the FDA. This assay has been validated pursuant to the CLIA regulations and is used for clinical purposes. For additional information, please refer to https://education.Gameotic/faq/AAS749 (This link is being provided for information/ educational purposes only.) Chiara Ritter PA-C LAB - NO BLOOD DRAW Final Re sult [facility] Organization Address City/State/ZIP Co de Phone Number [facility] [address] [facility] [address] [place] [address], [facility] [address] [facility] ([address]) [place] [address] from Last 3 Months or Most Recently Relevant to Health Maintenance Insurance [employer] [address] ACO Care Teams Mud Mill Tender Relationship Specialty Start Date End Date Chiara Ritter PA-C [address] [place] [address] PCP - General [facility] 09/05/21
--- OUTSIDE RECORDS SUMMARY | 2024-12-31 13:25 | XMS_ITS | Clinical Summary ---
Author Organization [facility] Address [address] [place] [address] Phone Care Team Providers Care Health Plan Advisor Name Role Phone Chiara Ritter Primary Care Provider [phone] Allergies Active Allergy Reactions Criticality Noted Date [...] 4 Active fluoride, sodium, 1.1 % cream [place] twice daily with toothpaste then expectorate. Do not rinse. 3 Active albuterol 2.5 mg /3 mL (0.083 %) nebulizer solution Take 3 mL (2.5 mg total) by nebulization every 6 (six) hours if needed for wheezing. 360 mL 11 5 11/05/19 26 Active Encounters Date Type Department Care Team Description 11/19/2024 Telephone [facility] [address] [place] [address] Brittanie Little [place] DME (Nebulizer machine) 11/11/2024 9:36 AM EST - 11/11/2024 11:59 PM EST Hospital Encounter [facility] [address] [place] [address] Encounter for screening mammogram for malignant neoplasm of breast Discharge Disposition: Home or Self Care 11/05/2024 10:44 AM EST - 11/05/2024 11:59 PM EST Hospital Encounter [facility] Xray [address] [place] [address] Moderate persistent asthma, unspecified whether complicated Discharge Disposition: Home or Self Care 11/05/2024 10:30 AM EST Lab Draw Station - 175 [facility] 175 [facility] [address] [place] [id number] Asthma (Primary Dx); Moderate persistent asthma, unspecified whether complicated; Dyspnea, unspecified type; Palpitation 11/05/2024 10:15 AM EST Office Visit Orthopedic Surgery [facility] [address] [address] Lei Brizuela DPM Pain in toes of both feet (Primary Dx) 11/05/2024 9:00 AM EST Consult Pulmonolgy - [facility] [address] [address] Ketty Wright MD Moderate persistent asthma, unspecified whether complicated (Primary Dx); Dyspnea, unspecified type; Palpitation; Post-COVID syndrome 11/05/2024 8:30 AM EST Ancillary Procedure [facility] [address] [place] [phone] Paco Camacho Shortness of breath 10/14/2024 9:30 AM EST Office Visit Orthopedic Surgery [facility] [address] [address] Lei Brizuela DPM Cellulitis of right foot [...] Description 01/14/2025 12:30 PM EDT Ancillary Procedure [facility] [address] [facility] [place] [address] [place] [address] 02/20/2025 9:45 AM EDT Office Visit Pulmonolgy - [facility] 175 [facility] [address] [place] [address] Ketty Wright MD 175 [facility] [address] [place] [address] Health Maintenance Due Date Last Done Comments [...] Signed Date: 11/12/2024 13:34 ET Workstation ID: [id number] Transcribed By: Self Edit Transcribed Date: 11/12/2024 [...] Signed Date: 11/12/2024 13:34 ET Workstation ID: [id number] Transcribed By: Self Edit Transcribed Date: 11/12/2024 13:29 ET us Robert Parrish MD IMG BI PROCEDURES Final Result * XR Chest 2 Views (11/05/2024 10:56 AM EST) Anatomical Region Laterality Modality Body Radiographic Natalia ging 11/05/2024 11:0 2 AM EST Impressions 11/05/2024 11:03 AM EST Normal examination. No change since the prior study performed 01/26/2017. Code 77600 -------- FINAL REPORT -------- Dictated By: Tacos Moreno Dictated Date: 11/05/2024 11:02 ET Assigned Physician: Tacos Moreno Reviewed and Electronically Signed By: Tacos Moreno Signed Date: 11/05/2024 11:03 ET Workstation ID: [id number] Transcribed By: Self Edit Transcribed Date: 11/05/2024 [...] since the prior study performed 01/26/2017. Code 76255 -------- FINAL REPORT -------- Dictated By: Tacos Moreno Dictated Date: 11/05/2024 11:02 ET Assigned Physician: Tacos Moreno Reviewed and Electronically Signed By: Tacos Moreno Signed Date: 11/05/2024 11:03 ET Workstation ID: [id number] Transcribed By: Self Edit Transcribed Date: 11/05/2024 11:02 ET Ketty Wright MD IMG XR PROCEDURES Final Result * (ABNORMAL) CBC auto differential (11/05/2024 10:27 AM EST) WBC 7.7 4.8 - 10.8 K/mcL LAB HEMETOLOGY METHOD 11/05/2024 2:38 PM [facility] RBC 4.90(H) 3.80 - 4.80 M/mcL LAB HEMETOLOGY METHOD 11/05/2024 2:38 PM [facility] Hemoglobin 13.9 11.5 - 16.0 g/dL LAB HEMETOLOGY METHOD 11/05/2024 2:38 PM [facility] Hematocrit 43.6 35.0 - 47.0 % LAB HEMETOLOGY METHOD 11/05/2024 2:38 PM [facility] MCV 88.6 79.0 - 98.0 FL LAB HEMETOLOGY METHOD 11/05/2024 2:38 PM [facility] MCH 28.3 27.0 - 32.0 pcg LAB HEMETOLOGY METHOD 11/05/2024 2:38 PM [facility] MCHC 31.9(L) 32.0 - 37.0 g/dL LAB HEMETOLOGY METHOD 11/05/2024 2:38 PM [facility] RDW 13.2 11.0 - 15.0 % LAB HEMETOLOGY METHOD 11/05/2024 2:38 PM [facility] Platelets 391 130 - 400 K/mcL LAB HEMETOLOGY METHOD 11/05/2024 2:38 PM [facility] MPV 9.3 7.0 - 11.0 FL LAB HEMETOLOGY METHOD 11/05/2024 2:38 PM [facility] NRBC 0.0 <1.0 % LAB HEMETOLOGY METHOD 11/05/2024 2:38 PM [facility] NRBC Absolute 0.00 <0.10 K/mcL LAB HEMETOLOGY METHOD 11/05/2024 2:38 PM [facility] Neutrophils Relative 53.5 % LAB HEMETOLOGY METHOD 11/05/2024 2:38 PM [facility] Lymphocytes Relative 34.6 % LAB HEMETOLOGY METHOD 11/05/2024 2:38 PM [facility] Monocytes Relative 8.2 % LAB HEMETOLOGY METHOD 11/05/2024 2:38 PM [facility] Eosinophils Relative 3.0 % LAB HEMETOLOGY METHOD 11/05/2024 2:38 PM [facility] Basophils Relative 0.4 % LAB HEMETOLOGY METHOD 11/05/2024 2:38 PM [facility] Immature Granulocytes Relative 0.3 % LAB HEMETOLOGY METHOD 11/05/2024 2:38 PM [facility] Neutrophils Absolute 4.14 1.50 - 7.00 K/mcL LAB HEMETOLOGY METHOD 11/05/2024 2:38 PM EST [facility] Lymphocytes Absolute 2.67 1.00 - 5.00 K/mcL LAB HEMETOLOGY METHOD 11/05/2024 2:38 PM EST [facility] Monocytes Absolute 0.63 0.20 - 1.00 K/mcL LAB HEMETOLOGY METHOD 11/05/2024 2:38 PM EST [facility] Eosinophils Absolute 0.23 0.00 - 0.50 K/mcL LAB HEMETOLOGY METHOD 11/05/2024 2:38 PM EST [facility] Basophils Absolute 0.03 0.00 - 0.20 K/mcL LAB HEMETOLOGY METHOD 11/05/2024 2:38 PM [facility] Immature Granulocytes Absolute 0.02 0.00 - 0.03 K/mcL LAB HEMETOLOGY METHOD 11/05/2024 2:38 PM EST [facility] Blood Venous blood specimen / Unknown Venipuncture / Unknown 11/05/2024 10:27 AM EST 11/05/2024 10:27 AM EST us Ketty Wright MD LAB BLOOD ORDERABLES Final Resul t Performing Organization Address City/[facility]/ZIP Co de Phone Number [facility] [address] [place] [address], [place] [phone] * HCG qualitative, urine (11/05/2024 10:27 AM EST) Preg Test, Ur Negative Negative 11/05/2024 1:56 PM EST [facility] Urine Urine specimen obtained by clean catch procedure / Unknown Non-blood Collection / Unknown 11/05/2024 10:27 AM EST 11/05/2024 10:27 AM EST Ketty Wright MD LAB URINE ORDERABLES Final Resul t [facility] [address] [place] [address], [place] [phone] * D-Dimer (11/05/2024 10:27 AM EST) D-Dimer, Quant (D-DU) <150 <=230 ng/mL DDU LAB COAGULATION METHOD 11/05/2024 12:14 PM EST [facility] Blood Venous blood specimen / Unknown Venipuncture / Unknown 11/05/2024 10:27 AM EST 11/05/2024 10:27 AM EST Narrative [facility] - 11/05/2024 12:14 PM EST D-Dimer [...] ORDERABLES Final Resul t Performing Organization Address City/[facility]/ZIP Co de Phone Number [facility] [address] [place] [address], [place] [phone] * (ABNORMAL) Immunoglobulin IgE (11/05/2024 10:27 AM EST) Pathologist [facility] IgE 695.7(H) 0.0 - 158.0 I Unit/mL LAB CHEMISTRY METHOD 11/05/2024 2:30 PM EST [facility] Blood Venous blood specimen / Unknown Venipuncture / Unknown 11/05/2024 10:27 AM EST 11/05/2024 10:27 AM EST us Ketty Wright MD LAB BLOOD ORDERABLES Final Resul t Performing Organization Address [facility]/ZIP Co de Phone Number [facility] [address] [place] [address], [place] [phone] * Pulmonary function testing: Carbon Monoxide Diffusing [...] Months Insurance [place] - [place] Care Teams Health Plan Advisor Relationship Specialty Start Date End Date Chiara Ritter PA [address] [place] [address] PCP - General 08/26/24
== END 2024-12-31 12:07 | disposition home or self-care (01) ==
PROVIDERS: PCP Physician Assistant Medical; Visit Provider Nurse Practitioner Family
DX: R35.1 Nocturia (principal); R35.0 Frequency of micturition; R39.15 Urgency of urination; N39.3 Stress incontinence (female) (male); Z13.9 Encounter for screening, unspecified
CPT/HCPCS: 99214

== ENCOUNTER → 2024-12-31 11:07 | Outpatient (BNVA) | payer MEDICAID, SELFPAY | PROVIDERS: PCP Physician Assistant Medical; Visit Provider Nurse Practitioner Family | DX: N39.3 Stress incontinence (female) (male) (principal); N32.81 Overactive bladder; R39.15 Urgency of urination; R35.1 Nocturia | CPT/HCPCS: 51798; 81003; 99212 ==

== ENCOUNTER 2025-06-02 11:00 | Outpatient (AMB) | payer MEDICAID, SELFPAY ==
--- NOTE | 2025-06-02 11:02 | MHC.OFFVIS ---
Intake Visit Reasons: follow up/PVR Intake Note: Patient is present for PVR F/U Urology Medication:OXYBUTYNIN Antibiotic Allergy:NONE Blood Thinner:NONE Last PVR:0ML'S Todays PVR:22ML'S Independent Video Producer Required: No Allergies No Known Allergies Allergy (Verified 06/02/25 11:30) Medication List - Last Reconciled 06/02/25 by RENE Jacobs albuterol sulfate 90 mcg/actuation (Ventolin HFA) 2 puffs inhalation Q4-6H PRN budesonide-formoterol 80-4.5 mcg/actuation (Symbicort) 2 puffs inhalation BID ketoconazole 2% appl topical BID PRN oxybutynin chloride ER 10 mg PO DAILY 30 days silver sulfadiazine 1% (SSD) appl topical DAILY HPI Comments Details: Solange is a very pleasant 44-year-old female patient of Dr. Ritter who was accompanied by his significant other at today's office visit. She has a past medical history of migraines, endometriosis, moderate persistent allergic asthma, and obesity. She presents to the office today for follow-up. In discussion with the patient today she reports significant improvement in episodes of nocturia as well as urge and frequency she had been experiencing with 10 mg of oxybutynin daily. She is requesting refill today. She currently denies any bothersome urinary issues or concerns. In office urinalysis results reviewed with the patient today. PVR 22 mL. Previous workup has included a retroperitoneal ultrasound 12/23 noting bilateral kidneys are normal in size and echotexture. No hydronephrosis or renal calculi bilaterally. The bladder is unremarkable. Pre void bladder volume is approximately 460 mL. Postvoid bladder volume is approximately 40 mL. She does have a previous history of 5 sections. She denies hematuria, dysuria, foul smelling urine, changes to urinary stream, flank pain, fever, and or chills. We discussed at length potential causes of lower urinary tract symptoms patient was experiencing as well as further workup. We discussed pelvic floor exercises as well as bladder diary. We discussed further treatment options to include pelvic floor therapy, medications, and or in office urodynamics for further assessment evaluation. She otherwise offers no other issues or concerns at this time. [facility] Medical History History of wheezing History of bronchitis History of migraine History of abnormal cervical Papanicolaou smear Endometriosis Orgasmic headache Moderate persistent allergic asthma Other headache syndrome History of smoking Obesity Surgical History History of tubal ligation Hx of cholecystectomy H/O section Review of Systems Const All systems reviewed & are unremarkable except as noted in HPI and below Physical Exam Const General: cooperative, healthy appearing, comfortable, no acute distress, well developed, alert and awake Nutritional Appearance: overweight Orientation/consciousness: patient oriented x3 Limitations: no limitations HEENT Head: Yes normal to inspection, Yes normocephalic and Yes atraumatic Ears: hearing grossly normal bilaterally Eyes General: appearance normal, both eyes and all related structures Neck Neck: Yes normal visual inspection and Yes trachea midline Chest Chest palpation & inspection: normal inspection of the chest Resp Effort & Inspection: normal respiratory effort and able to speak in complete sentences Cardio Rate: regular rate GI Inspection: Yes normal to inspection General: Yes no CVA tenderness Back/Spine/Pelvis Back: no CVA tenderness Skin General skin exam: no rashes or lesions noted Neuro General: patient oriented x3 Extrem General: Yes normal to inspection Psych Appearance: grossly normal and well kempt Mental Status: mental status grossly normal Speech and movement: Normal speech and movement present and Clear speech present Affect: normal affect Attitude: cooperative Thought process: Normal thought process present Thought content: Normal thought content present Insight: Fair insight present (Psych) Judgement: Fair judgement present (Psych) Office Procedures Post Void Residual Post Residual Void Post Void Residual (PVR): 22 63313-Mfou Void Residual by ultrasound Assessment & Plan Assessment & Plan (1) Nocturia: Code(s): R35.1 - Nocturia Category: Medical (2) Urinary frequency: Code(s): R35.0 - Frequency of micturition Category: Medical (3) Urinary urgency: Code(s): R39.15 - Urgency of urination Category: Medical (4) Stress incontinence: Code(s): N39.3 - Stress incontinence (female) (male) Category: Medical Plan In office urinalysis results reviewed with the patient today; as noted above. PVR 22 mL. Continue oxybutynin; refill provided. She currently denies any bothersome urinary issues or concerns. She reports be happy with current voiding parameters. Will continue with surveillance monitoring. We discussed importance of continuing to limit fluids 2-3 hours prior to bed to decrease episodes of nocturia. We discussed bladder triggers and irritants. Follow-up in 6 months with PVR; or sooner with any issues, concerns, and or questions. Orders: Orders AMB Urinalysis Automated Today Z13.9 - Encounter for screening, unspecified Medications: Changed From oxybutynin chloride ER 10 mg PO DAILY 30 days 30 tabs 3RF N32.81 - Overactive bladder To oxybutynin chloride ER 10 mg PO DAILY 90 tabs 3RF 90 days N32.81 - Overactive bladder Patient Instructions: The patient had an opportunity to ask questions regarding the treatment plan. All questions were answered. Physical exam, labs, and imaging were discussed and reviewed in detail. As well as risks, benefits, and discussion of treatment choices. No major barriers to understanding were identified. The patient expressed understanding and agreement with the above treatment plan. The patient was made aware they should contact our office by phone for worsening of their current condition, the appearance of new symptoms, or with any questions or concerns. Compliance is encouraged with any medications and follow up testing that is ordered. It is a privilege to be allowed the opportunity to participate in? your urological care.? Again, if you have any questions or concerns If you have any questions or concerns please do not hesitate to contact me. The office is [phone]. This note is constructed using voice recognition software. While every effort has been made to ensure accuracy safety intern errors may have been included. Yours sincerely, RENE Jacobs Coding Level of Care Code Est Pt Level 3 (40348) Diagnoses Nocturia R35.1 Urinary frequency R35.0 Urinary urgency R39.15 Stress incontinence N39.3 CPT Codes Post Residual Void - PVR CPT Code: 65970-Xazo Void Residual by ultrasound ([id number])
--- OUTSIDE RECORDS SUMMARY | 2025-06-02 11:48 | XMS_ITS | Clinical Summary ---
Author Organization [facility] Address [address] [place] [address] Phone Care Team Providers Care Supervisor Sleeping Bag Department Name Role Phone Chiara Ritter Primary Care Provider [phone] Allergies Active Allergy Reactions Criticality Noted Date [...] 4 Active fluoride, sodium, 1.1 % cream [place] twice daily with toothpaste then expectorate. Do not rinse. 3 Active albuterol 2.5 mg /3 mL (0.083 %) nebulizer solution Take 3 mL (2.5 mg total) by nebulization every 6 (six) hours if needed for wheezing. 360 mL 11 5 11/05/19 26 Active Encounters Date Type Department Care Team Description 04/14/2025 3:45 PM EDT [facility] [address] [place] [address] Ketty Wright MD Moderate persistent asthma, unspecified whether complicated (Primary Dx); Ex-smoker from Last 3 Months Social History Tobacco Use Types Packs/Day Years Used Date Smoking Tobacco: Never Passive Smoke Exposure: Never Smokeless Tobacco: Never Tobacco Cessation:Counseling Given: Not Answered Comments No Sex and Gender Information Value Date Recorded Sex Assigned at Not on file Legal Sex Female 1:51 PM EST Gender Identity Not on file Sexual Orientation Not on file Obstetrics History Para Term AB IAB SAB Ectopic Multiple Livin g Live Births 5 Last Filed Vital Signs Vital Sign Reading Time Taken Comments Blood Pressure 109/78 04/14/2025 3:29 PM EDT Pulse 63 04/14/2025 3:29 PM EDT Temperature 35.9 C (96.6 F) 04/14/2025 3:29 PM EDT Respiratory Rate 16 04/14/2025 3:29 PM EDT Oxygen Saturation 100% 04/14/2025 3:29 PM EDT Inhaled Oxygen Concentration - - Weight 92.4 kg (203 lb 12.8 oz) 04/14/2025 3:29 PM EDT Height 160 cm (5' 3 ) 04/14/2025 3:29 PM EDT Body Mass Index 36.1 04/14/2025 3:29 PM EDT Plan of Treatment Health Maintenance Due Date Last Done Comments Cervical Cancer Screening: Pap Smear 2002 HIV Screening 09/26/2022 Social Influencers of Health Screening 09/26/2022 COVID-19 Vaccine ( season) 2024 01/21/2022, 03/17/2021, 02/17/2021 Depression Screening 10/29/2024 Influenza Vaccine (#1) 2025 , 08/09/2023, 11/16/2022, Additional history exists Breast Cancer Screening 11/11/2026 11/11/2024 DTaP,Tdap,and Td Vaccines (2 - Td or Tdap) 08/20/2028 08/20/2018 Cholesterol Screening (Lipid Panel) 04/07/2030 04/07/2025, 04/07/2025 Pneumococcal Vaccine: Pediatrics (0 to 5 Years) and At-Risk Patients (6 to 49 Years) Completed 08/09/2023, 12/20/2021 Hepatitis B Vaccines Completed 08/21/2024, 08/09/20 Hepatitis C Screening Completed 04/07/2025 HIB Vaccines Aged Out No longer eligi [...] age to complete this topic Meningococcal B Vaccine Aged Out No l onger eligible based on patient's age to complete [...] screening mammogram for malignant neoplasm of breast from Last 3 Months or Most Recently Relevant to Health Maintenance Results * MG Mammo Digital Screening w Chavez bilat (11/11/2024 9:59 AM EST) Anatomical Region Laterality Modality Breast Bilateral Mammography 11/12/2024 1:29 PM EST Impressions 11/12/2024 1:34 PM EST No mammographic evidence of malignancy. No suspicious interval change. A negative mammogram in the presence of a clinically suspicious palpable abnormality does not preclude the possibility of malignancy or alter the indications for biopsy. ASSESSMENT: BI-RADS 1: NEGATIVE RECOMMENDATION(S): 1: Routine screening mammogram BILATERAL in 1 year. -------- FINAL REPORT -------- Dictated By: Josh Espinal Dictated Date: 11/12/2024 13:29 ET Assigned Physician: Josh Espinal Reviewed and Electronically Signed By: Josh Espinal Signed Date: 11/12/2024 13:34 ET Workstation ID: [id number] Transcribed By: Self Edit Transcribed Date: 11/12/2024 13:29 ET Narrative 11/12/2024 1:34 PM EST EXAM: SCREENING MAMMOGRAPHY, BILATERAL HISTORY: SCREENING. No additional history. COMPARISON: 09/10/2023 TECHNIQUE: Synthesized CC and MLO projections of each breast. Tomosynthesis of each breast in the CC and MLO projections. ADDITIONAL IMAGING: None Computer-aided detection was employed with the [employer] AI 3-D. TISSUE DENSITY: There are scattered areas of fibroglandular density. (BI-RADS category B) FINDINGS: RIGHT BREAST: No suspicious mass. No suspicious calcification. No distortion. No additional suspicious right breast findings LEFT BREAST: No suspicious mass. No suspicious calcification. No distortion. No additional suspicious left breast findings Procedure Note Josh Espinal MD - 11/12/2024 EXAM: SCREENING MAMMOGRAPHY, BILATERAL HISTORY: SCREENING. No additional history. COMPARISON: 09/10/2023 TECHNIQUE: Synthesized CC and MLO projections of each breast.Tomosynthesis of each breast in the CC and MLO projections. ADDITIONAL IMAGING: None Computer-aided detection was employed with the [employer] profound AI 3-D. TISSUE DENSITY: There are [...] Signed Date: 11/12/2024 13:34 ET Workstation ID: [id number] Transcribed By: Self Edit Transcribed Date: 11/12/2024 13:29 ET Robert Parrish MD IMG BI PROCEDURES Final Result from Last 3 Months or Most Recently Relevant to Health Maintenance Insurance MEDICAID - [place] Care Teams Supervisor Sleeping Bag Department Relationship Specialty Start Date End Date Chiara Ritter PA [address] [place] [address] PCP - General 08/26/24
--- OUTSIDE RECORDS SUMMARY | 2025-06-02 11:48 | XMS_ITS | Clinical Summary ---
Author Organization [facility] Address [address] [place] [address] Care Team Providers Care Wildlife Biology Technician Name Role Phone Chiara Ritter PA-C Primary Care Provider [phone] Source Comments PLEASE NOTE, if this patient is a minor, it may be UNLAWFUL to discuss sensitive information that is contained in these records (such as FAMILY PLANNING, MENTAL HEALTH or SUBSTANCE ABUSE) with the minor patient's parent or other person without the patient's specific authorization.[facility] Allergies No known active allergies Medications naproxen (NAPROSYN) 500 mg tablet TK 1 T PO BID PRF PAIN 0 9 Active acetaminophen (TYLENOL) 500 mg tabletIndication s:Other headache syndrome Take 1 Tab by mouth every 8 (eight) hours as needed for pain DO NOT take more than 3 (three) times in a 24 hour period. 60 Tab 3 9 Active topiramate (TOPAMAX) 50 mg tabletIndication s:Other headache syndrome Take 1 Tab by mouth nightly at bedtime 30 Tab 3 0 Active diclofenac sodium (VOLTAREN) 1 % gel MELISSA 4 GRAMS EXT AA TID 0 Active betamethasone dipropionate (DIPROLENE) 0.05 % ointment APPLY TO THE AFFECTED AREA ON HANDS TWICE DAILY FOR TWO WEEKS THEN BREAK FOR ONE WEEK REPEAT NEEDED FLARES 2 Active fluticasone propion-salmeter oL (AIRDUO RESPICLICK) 232-14 mcg/actuation aepbIndications: History of wheezing,Moderat e persistent asthma without complication ([facility]) Inhale 1 Inhalation. into the lungs 2 (two) times daily 1 Each 5 3 Active mirabegron ER (MYRBETRIQ) 25 mg Iq55Ktywvcasode: Stress incontinence Take 1 Tablet by mouth nightly at bedtime for 90 days 30 Tablet 2 3 Active fluoride, sodium, (SF 5000 PLUS) 1.1 % creaIndications: Caries of enamel (incipient) Irving twice daily with toothpaste then expectorate. Do not rinse. 51 g 3 3 Active albuterol HFA 90 mcg/actuation inhalerIndicatio ns:Moderate persistent asthma without complication (HHS-HCC) Inhale 2 Puffs into the lungs every 4 to 6 (four to six) hours as needed for wheezing or shortness of breath 18 g 2 4 Active budesonide-formo teroL (SYMBICORT) 80-4.5 mcg/actuation inhalerIndicatio ns:Moderate persistent asthma with acute exacerbation (HHS-HCC) Inhale 2 Puffs into the lungs 2 (two) times daily 10.2 g 2 4 Active oxyBUTYnin chloride (DITROPAN-XL) 10 mg 24 hr tablet Take 10 mg by mouth once daily. 5 Active metroNIDAZOLE (FLAGYL) 500 mg tabletIndication s:BV (bacterial vaginosis) Take 1 Tablet by mouth 2 (two) times daily Avoid alcohol consumption during treatment and 48 hours post treatment.. 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 Moderate persistent asthma (HHS-HCC) 01/23/2020 Other headache syndrome 08/04/2019 Endometriosis 11/04/2018 Obesity (BMI 30-39.9) 10/06/2016 Hx of smoking 10/06/2016 Resolved Problems Problem Noted Date Diagnosed Date Resolved Date History of wheezing 08/04/2019 01/23/20 20 Encounters Date Type Department Care Team Description 04/07/2025 9:20 AM EDT Office Visit [address] [phone] Chiara Ritter PA-C 04/07/2025 Results Follow-Up [address] [phone] Reymundo Hair MD 04/04/2025 9:40 AM EDT Office Visit [address] [phone] Reymundo Hair MD from Last 3 Months Immunizations Immunization Administration Dates Next Due Flu, Preservative Free 08/09/2023,2022,12/20/2021,09/24 Hep B,adult,adjuvanted (HEPLISAV) 08/21/2024,09/2023 INFLUENZA, SEASONAL, INJECTABLE 09/05/2018 INFLUENZA, SEASONAL, INJECTA BLE, PRESERVATIVE FREE 10/06/2016 Influenza (FLUBLOK),recombinant,injectable,prese rvative Free 08/21/2024 Moderna COVID-19 Vaccine, re d cap blue label, 12+ Primary Series 01/21/2022,03/17/2021,02/17/2021 PNEUMOCOCCAL CONJUGATE PCV 2 0 (Prevnar 20) 08/09/2023 PNEUMOCOCCAL POLYSACCHARIDE PPV23 (Pneumovax 23) 12/20/2021 TDAP 08/20/2018 Family History Medical History [...] alcohol) occasionally Social Connections Answer Date Recorded How often do you feel lonely or isolated from th ose around you? 04/07/2025 Financial Resource Strain Answer Date R ecorded Hard to pay for: Food 1 04/07/2025 Stress Answer Date Recorded Do you feel these kinds of stress these days? 1 04/07/2025 Physical Activity Answer Date Recorded Physical Activity 0 06/21/2019 Food Insecurity Answer Date Recorded Hard to pay for: Food 1 04/07/2025 Transportation Needs Answer Date Record ed Hard to pay for: Transportation 1 04/07/2025 Housing Stability Answer Date Recorded Housing 1 08/09/2023 Safety and Environment Answer Date Omar rded How often does anyone, inclu ding family and friends, physically hurt you? 1 04/28/2024 Utilities Answer Date Recorded Hard to pay for: Utilities 1 04/07 Employment Answer Date Recorded Stress 0 01/16/2022 [...] Sign Reading Time Taken Comments Blood Pressure 98/72 04/07/2025 9:40 AM EDT Pulse 80 04/07/2025 9:40 AM EDT Temperature 37.1 C (98.7 F) 04/07/2025 9:40 AM EDT Respiratory Rate 16 04/07/2025 9:40 AM EDT Oxygen Saturation 98% 04/07/2025 9:40 AM EDT Inhaled Oxygen Concentration - - Weight 92.9 kg (204 lb 11.2 oz) 04/07/2025 9:40 AM EDT Height 160 cm (5' 3 ) 04/07/2025 9:40 AM EDT Body Mass Index 36.26 04/07/2025 9:40 AM EDT Plan of Treatment Health Maintenance Due Date Last Done Comments HPV Screening 1980 [id number] ( season) 2024 01/21/2022, 03/17/2021, 02/17/2021 Dental BW 12/14/2024 12/12/2023, 08/0 10/2022, 04/27/2022 Dental Examination 12/14/2024 12/12/2023, 0 05/29/2023, 04/27/2022 Dental Perio Charting 12/14/2024 12/12/2023, 022 Dental Prophy 12/14/2024 12/12/2023, 04/27/2022 Relationship Safety Screening/Counseling 04/28/2025 04/28/2024, 08/09/2023, 12/20/2021, Additional history exists Imm-Influenza (#1) 2025 08/21/2024, 1 , 11/16/2022, Additional history exists Depression Monitoring 07/08/2025 04/07/2025 , 04/28/2024, 08/09/2023, Additional history exists Annual Wellness (Adult): Indicated (All Coverage) 08/21/2025 08/21/2024, 08/09/2023, 11/16/2022, Additional history exists Breast Cancer Screening (Mammogram) 11/11/2025 11/11/2024, 11/11/2024 Cervical Cancer Screening 11/16/2025 Pap + HPV 11/16/2025 11/16/2022 Pap Smear 11/16/2025 11/16/2022 Anxiety Screening 04/07/2026 04/07/2025 Hypertension Screening (#1) 04/07/2026 Tobacco Screening 04/07/2026 04/07/2025 Diabetes Screening 04/07/2028 04/07/2025, 1 , 08/09/2023 Lipid Screening 04/07/2028 04/07/2025 Dental FMX/Pano 05/31/2028 05/29/2023 Imm-DTaP/Tdap/Td (2 - Td or Tdap) 08/20/2028 018 Imm-Pneumococcal Completed 08/09/2023, 12/20/2021 Imm-Hepatitis B Completed 08/21/2024, 08/09/2023 Alcohol and Drug Screen Completed 04/07/20, 04/28/2024, 08/09/2023, Additional history exists HIV Screening Completed 04/07/2025 Hepatitis C Screening Completed 04/07/2025 Cervical Ablation/Cold-Knife Conization Discontinued Cervical Cryotherapy Discontinued Colposcopy Discontinued Endometrial Biopsy Discontinued Excision/Leep Discontinued HPV Genotyping Discontinued Vaginal Pap Discontinued Vulvoscopy Discontinued Procedures Procedure Name Priority Date/Time Associated Diagnosis Comments C TRACHOMATIS/N GONORRHOEAE RNA,TMA Routine 04/07/2025 10:11 AM EDT Routine screening for STI (sexually transmitted infection) RPR (DIAGNOSIS) WITH REFLEX TO TITER AND CONFIRMATORY TESTING Routine 04/07/2025 10:11 AM EDT Routine screening for STI (sexually transmitted infection) HIV 1/2 AG & AB W/RFLX (4TH GEN) Routine 04/07/2025 10:11 AM EDT Routine screening for STI (sexually transmitted infection) HEPATITIS C AB W/RFLX HCV RNA, QT, RT PCR Routine 04/07/2025 10:11 AM EDT Routine screening for STI (sexually transmitted infection) LIPID PANEL Routine 04/07/2025 10:11 AM EDT Obesity (BMI 30-39.9) COMPREHENSIVE METABOLIC PANEL Routine 04/07/2025 10:11 AM EDT Obesity (BMI 30-39.9) BLOOD COUNT COMPLETE AUTO&AUTO DIFRNTL WBC Routine 04/07/2025 10:11 AM EDT Obesity (BMI 30-39.9) URINE CULTURE W ID & SENS Routine 04/04/2025 10:06 AM EDT Dysuria SURESWAB ADVANCED VAGINITIS PLUS, TMA Routine 04/04/2025 10:03 AM EDT Dysuria URINALYSIS, MULTISTIX (POCT) Routine 04/04/2025 9:33 AM EDT Dysuria REFERRAL FOR MAMMOGRAM Routine 11/11/2024 3:00 AM EST Breast cancer screening by mammogram COMP PERIODONTAL EVALUATION - NEW/EST PATIENT Routine 12/12/2023 9:00 AM EST Encounter for dental examination BITEWINGS - FOUR RADIOGRAPHIC IMAGES Routine 12/12/2023 9:00 AM EST Encounter for dental examination PROPHYLAXIS - ADULT Routine 12/12/2023 9 :00 AM EST Encounter for dental examination PERIODIC ORAL EVALUATION ESTABLISHED PATIENT Routine 12/12/2023 9:00 AM EST Encounter for dental examination INTRAORAL - COMP SERIES OF RADIOGRAPHIC IMAGES [...] Recently Relevant to Health Maintenance Results * RPR (DIAGNOSIS) WITH REFLEX TO TITER AND CONFIRMATORY TESTING Routine (04/07/2025 10:11 AM EDT) RPR (DX) W/REFL TITER AND CONFIRMATORY TESTING NON-REACT VITO NON-REACT VITO [email or web address] Comment: No laboratory evidence of syphilis. If recent exposure is suspected, submit a new sample in 2-4 weeks. Serum Blood / Unknown 04/07/2025 1 0:11 AM EDT 04/07/2025 10:13 AM EDT Narrative [facility] - 04/09/2025 11:40 AM EDT FASTING:NO us Chiara Ritter PA-C LAB - BLOOD DRAW Final Resul t [facility] [address] [place] [id number], [email or web address] [address] [place] [phone] * HEPATITIS C AB W/RFLX HCV RNA, QT, RT PCR Routine (04/07/2025 10:11 AM EDT) HEPATITIS C ANTIBODY NON-REACT VITO NON-REACT VITO [email or web address] Comment: HCV antibody was non-reactive. There is no laboratory evidence of HCV infection. In most cases, no further action is required. However, if recent HCV exposure is suspected, a test for HCV RNA (test code 63551) is suggested. For additional information please refer to http://education.[employer]/faq/NMB89f9 (This link is being provided for informational/ educational purposes only.) Blood Blood / Unknown 04/07/2025 1 0:11 AM EDT 04/07/2025 10:13 AM EDT Narrative [facility] - 04/09/2025 11:40 AM EDT FASTING:NO us Chiara Ritter PA-C LAB - BLOOD DRAW Edited Resu lt - Final Performing Organization Address [facility] de Phone Number [employer] [address] [address], [employer] [address] [address] * HIV 1/2 AG & AB W/RFLX (4TH GEN) Routine (04/07/2025 10:11 AM EDT) Pathologist [facility] HIV AG/AB, 4TH GEN NON-REAC TIVE NON-REAC TIVE [employer] Comment: HIV-1 antigen and HIV-1/HIV-2 antibodies were not detected. There is no laboratory evidence of HIV infection. PLEASE NOTE: This information has been disclosed to you from records whose confidentiality may be protected by state law. If your state requires such protection, then the state law prohibits you from making any further disclosure of the information without the specific written consent of the person to whom it pertains, or as otherwise permitted by law. A general authorization for the release of medical or other information is NOT sufficient for this purpose. For additional information please refer to http://education.[employer].Traveler | VIP/faq/NGO368 (This link is being provided for informational/ educational purposes only.) The performance of this assay has not been clinically validated in patients less than 2 years old. Blood Blood / Unknown 04/07/2025 1 0:11 AM EDT 04/07/2025 10:13 AM EDT Narrative [facility] - 04/09/2025 11:40 AM EDT FASTING:NO us Chiara Ritter PA-C LAB - BLOOD DRAW Final Resul t Performing Organization Address [facility]/ZIP Co de Phone Number [facility] [address] [address], [place] [facility] [address] [address] * CHLAMYDIA/NEISSERIA GONORRHOEAE RNA, TMA, UROGENITAL Urine Urine Routine (04/07/2025 10:11 AM EDT) [facility] CHLAMYDIA TRACHOMATIS RNA, TMA NOT DETECTED NOT DETECTED [facility] NEISSERIA GONORRHOEAE RNA, TMA NOT DETECTED NOT DETECTED [facility] COMMENT [facility] Urine Urine specimen / Unknown 04/07/2025 10:11 AM EDT 04/07/2025 10:13 AM EDT [address] [facility] - 04/09/2025 11:40 AM EDT FASTING:NO The analytical performance characteristics of this assay, when used to test SurePath(TM) specimens have been determined by [facility]. The modifications have not been cleared or approved by the FDA. This assay has been validated pursuant to the CLIA regulations and is used for clinical purposes. For additional information, please refer to https://education.[employer]/faq/UFW151 (This link is being provided for information/ educational purposes only.) Chiara Ritter PA-C LAB BODY FLUIDS AND STOOLS A LEELA Edited Result - Final [facility] [address] [address], [facility] [address] [address] * (ABNORMAL) BLOOD COUNT COMPLETE AUTO&AUTO DIFRNTL WBC Routine (04/07/2025 10:11 AM EDT) [facility] WHITE BLOOD CELL COUNT 5.4 3.8 - 10.8 Thousand/ uL [facility] RED BLOOD CELL COUNT 4.56 3.80 - 5.10 Million/u L [facility] HEMOGLOBIN 12.8 11.7 - 15.5 g/dL [facility] HEMATOCRIT 40.8 35.0 - 45.0 % [facility] MCV 89.5 80.0 - 100.0 fL [facility] MCH 28.1 27.0 - 33.0 pg [facility] MCHC 31.4(L) 32.0 - 36.0 g/dL [facility] Comment: For adults, a slight decrease in the calculated MCHC value (in the range of 30 to 32 g/dL) is most likely not clinically significant; however, it should be interpreted with caution in correlation with other red cell parameters and the patient's clinical condition. RDW 13.7 11.0 - 15.0 % [email or web address] PLATELET COUNT 287 140 - 400 Thousand/ uL [email or web address] MPV 9.7 7.5 - 12.5 fL [email or web address] ABSOLUTE NEUTROPHILS 2,754 1,500 - 7,800 cells/uL [email or web address] ABSOLUTE LYMPHOCYTES 1,933 850 - 3,900 cells/uL [facility] ABSOLUTE MONOCYTES 529 200 - 950 cells/uL [facility] ABSOLUTE EOSINOPHILS 162 15 - 500 cells/uL [facility] ABSOLUTE BASOPHILS 22 0 - 200 cells/uL [facility] NEUTROPHILS PCT 51 % [employer] [facility] LYMPHOCYTES 35.8 % [facility] [employer] [facility] MONOCYTES 9.8 % [facility] [employer] [facility] EOSINOPHILS 3.0 % [facility] [employer] [facility] BASOPHILS 0.4 % [employer] (PRIMP)G [employer] [facility] Blood Blood / Unknown 04/07/2025 1 0:11 AM EDT 04/07/2025 10:13 AM EDT Narrative [facility] - 04/09/2025 11:40 AM EDT FASTING:NO Chiara Ritter PA-C LAB - BLOOD DRAW Edited Resu lt - Final [facility] [address] [address], [employer] [address] [place] [address] * (ABNORMAL) LIPID PANEL Routine (04/07/2025 10:11 AM EDT) CHOLESTEROL, TOTAL 156 <200 mg/dL [facility] HDL CHOLESTEROL 44(L) > OR = 50 mg/dL [facility] TRIGLYCERIDES 81 <150 mg/dL [facility] LDL-CHOLESTEROL 95 99 mg/dL (calc) [facility] Comment: Reference range: <100 Desirable range <100 mg/dL for primary prevention; <70 mg/dL for patients with CHD or diabetic patients with > or = 2 CHD risk factors. LDL-C is now calculated using the Claudia calculation, which is a validated novel method providing better accuracy than the Friedewald equation in the estimation of LDL-C. qAuilino ANDERSEN et al. PAZ. 2013;310(19): 3667-4375 (http://education.[employer]/faq/SBH665) CHOL/HDLC RATIO 3.5 <5.0 (calc) [email or web address] NON-HDL CHOLESTEROL 112 <130 mg/dL (calc) [email or web address] Comment: For patients with diabetes plus 1 major ASCVD risk factor, treating to a non-HDL-C goal of <100 mg/dL (LDL-C of <70 mg/dL) is considered a therapeutic option. Blood Blood / Unknown 04/07/2025 1 0:11 AM EDT 04/07/2025 10:13 AM EDT Narrative [facility] - 04/09/2025 11:40 AM EDT FASTING:NO Chiara Ritter PA-C LAB - BLOOD DRAW Final Resul t [facility] [address] [place] [address], [email or web address] [address] [place] [phone] * (ABNORMAL) COMPREHENSIVE METABOLIC PANEL Routine (04/07/2025 10:11 AM EDT) GLUCOSE 100(H) 65 - 99 mg/dL [email or web address] Comment: Fasting reference interval For someone without known diabetes, a glucose value between 100 and 125 mg/dL is consistent with prediabetes and should be confirmed with a follow-up test. UREA NITROGEN (BUN) 10 7 - 25 mg/dL [email or web address] CREATININE (blood) 0.51 0.50 - 0.99 mg/dL [email or web address] EGFR 119 > OR = 60 mL/min/1. 73m2 [email or web address] BUN/CREATININE RATIO SEE NOTE: [email or web address] Comment: Not Reported: BUN and Creatinine are within reference range. SODIUM 135 135 - 146 mmol/L [email or web address] POTASSIUM 4.0 3.5 - 5.3 mmol/L [facility] CHLORIDE 104 98 - 110 mmol/L [facility] CARBON DIOXIDE 25 20 - 32 mmol/L [facility] CALCIUM 9.1 8.6 - 10.2 mg/dL [facility] PROTEIN, TOTAL 7.1 6.1 - 8.1 g/dL [facility] ALBUMIN 4.3 3.6 - 5.1 g/dL [facility] GLOBULIN 2.8 1.9 - 3.7 g/dL (calc) [facility] ALBUMIN/GLOBULI N RATIO 1.5 1.0 - 2.5 (calc) [facility] BILIRUBIN, TOTAL 0.5 0.2 - 1.2 mg/dL [facility] ALKALINE PHOSPHATASE 60 31 - 125 U/L [facility] AST 11 10 - 30 U/L [facility] ALT 11 6 - 29 U/L [facility] Blood Blood / Unknown 04/07/2025 1 0:11 AM EDT 04/07/2025 10:13 AM EDT Narrative [facility] - 04/09/2025 11:40 AM EDT FASTING:NO Chiara Ritter PA-C LAB - BLOOD DRAW Edited Resu lt - Final [facility] [address] [address], [facility] [address] [address] * (ABNORMAL) URINE CULTURE W ID & SENS Urine Urine Routine (04/04/2025 10:06 AM EDT) CULTURE See Note(A) [facility] Comment: CULTURE, URINE, ROUTINE Micro Number: [id number] Test Status: Final Specimen Source: Urine Specimen Quality: Adequate Result: 10,000-49,000 CFU/mL of Escherichia coli E.coli INT DEVIKA AMOX/CLAVULANATE S 8 AMP/SULBACTAM I 16 CEFAZOLIN NR <=4 2 CEFEPIME S <=0.12 CEFTAZIDIME S <=1 CEFTRIAXONE S <=0.25 CIPROFLOXACIN S <=0.06 GENTAMICIN R >=16 IMIPENEM S <=0.25 LEVOFLOXACIN S <=0.12 MEROPENEM S <=0.25 NITROFURANTOIN S <=16 PIP/TAZOBACTAM S <=4 TRIMETHOPRIM/SULFA R >=320 S = Susceptible I = Intermediate R = Resistant NS = Not susceptible SDD = Susceptible Dose Dependent * = Not Tested NR = Not Reported NN = See Therapy Comments THERAPY COMMENTS Note 1: For infections other than uncomplicated UTI caused by E. coli, K. pneumoniae or P. mirabilis: Cefazolin is resistant if DEVIKA > or = 8 mcg/mL. (Distinguishing susceptible versus intermediate for isolates with DEVIKA < or = 4 mcg/mL requires additional testing.) Note 2: For uncomplicated UTI caused by E. coli, K. pneumoniae or P. mirabilis: Cefazolin is susceptible if DEVIKA <32 mcg/mL and predicts susceptible to the oral agents cefaclor, cefdinir, cefpodoxime, cefprozil, cefuroxime, cephalexin and loracarbef. Urine Urine specimen / Unknown 04/04/2025 10:06 AM EDT 04/04/2025 10:08 AM EDT Reymundo Hair MD LAB - MICROBIOLOGY AMBULATORY Fi nal Result [facility] [address] [address], [facility] [address] [address] * (ABNORMAL) SURESWAB ADVANCED VAGINITIS PLUS, TMA Vaginal Vaginal Routine (04/04/2025 10:03 AM EDT) SURESWAB(R) ADV BACTERIAL VAGINOSIS (BV), TMA POSITIVE(A) NEGATIVE [email or web address] MELVINA SPECIES CANCELED [facility] [employer] Comment: UNABLE TO REPORT Initial testing necessitated a repeat, but there was insufficient sample to perform. Result canceled by the ancillary. TRICHOMONAS VAGINALIS (TV), TMA CANCELED [email or web address] Comment: UNABLE TO REPORT Initial testing necessitated a repeat, but there was insufficient sample to perform. Result canceled by the ancillary. CHLAMYDIA TRACHOMATIS RNA, TMA NOT DETECTED NOT DETECTED [facility] [employer] NEISSERIA GONORRHOEAE RNA, TMA NOT DETECTED NOT DETECTED [facility] COMMENT [facility] Vaginal Vaginal structure / Unknown 04/04/2025 10:03 AM EDT 04/04/2025 10:04 AM EDT Narrative [facility] - 04/06/2025 7:41 PM EDT For additional information, please refer to https://education.[employer]/faq/EGY338 (This link is being provided for information/ educational purposes only.) us Reymundo Hair MD LAB - MICROBIOLOGY AMBULATORY Fi nal Result Performing Organization Address [facility]/ZIP Co de Phone Number [facility] [address] [address], [facility] [address] [address] * (ABNORMAL) URINALYSIS, MULTISTIX (POCT) Urine Routine (04/04/2025 9:33 AM EDT) URINE GLUCOSE NEGATIVE NEGATIVE [facility] URINE BILIRUBIN NEGATIVE NEGATIVE [facility] URINE KETONES NEGATIVE NEGATIVE [facility] URINE SPECIFIC GRAVITY 1.015 <=1.005 - >=1.030 [facility] POCT URINE BLOOD TRACE(A) NEGATIVE [facility] URINE PH 6.0 5.0 - 8.5 [facility] URINE PROTEIN Negative Negative [facility] URINE UROBILINOGEN 0.2 0.2 - 1.0 E.U./dL [facility] URINE NITRITE NEGATIVE NEGATIVE [facility] URINE LEUKOCYTES TRACE(A) NEGATIVE [facility] URINE COLOR YELLOW STRAW, YELLOW [facility] ODOR URINE Normal Normal [facility]- [facility] POCT CLARITY OF URINE CLEAR CLEAR [facility] Urine Urine specimen / Unknown 04/04/2025 9:33 AM EDT us Reymundo Hair MD LAB URINE AMBULATORY Final Resul t [facility] * REFERRAL FOR MAMMOGRAM SCREENING (11/11/2024 3:00 AM EST) 11/11/2024 3:00 AM EST Chiara Ritter PA-C IMG RFL MAMMO Final Result * THINPREP PAP & HPV MRNA E6/E7 RFLX HPV 16,18/[address]/NG (11/16/2022 1:22 PM EST) CHLAMYDIA TRACHOMATIS RNA, TMA NOT DETECTED NOT DETECTED [email or web address] NEISSERIA GONORRHOEAE RNA, TMA NOT DETECTED NOT DETECTED [email or web address] COMMENT [email or web address] CLINICAL INFORMATION See Note [email or web address] Comment:ROUTINE EXAM LMP See Note [email or web address] Comment:[id number] PREV. PAP [email or web address] PREV. BX [email or web address] SOURCE See Note [email or web address] Comment:Cervix STATEMENT OF ADEQUACY See Note [email or web address] Comment: Satisfactory for evaluation. Endocervical/transformation zone component absent. INTERPRETATION/RESU LT See Note [email or web address] Comment:Negative for intraep ithelial lesion or malignancy. INFECTION See Note [email or web address] Comment: Shift in vaginal johnnie suggestive of bacterial vaginosis. TILTROTOR CREW CHIEF See Note [facility] Comment: KN, CT(ASCP) CT screening location: [address] [address] COMMENT [email or web address] HPV MRNA E6/E7 Not Detected Not Detected [email or web address] Comment: Methodology: Cannery Worker-Mediated Amplification This assay detects E6/E7 viral messenger RNA (mRNA) from 14 high-risk HPV types (16,18,31,33,35,39,45,51,52,56,58,59,66,68). Cervical sources are required for HPV testing. If a vaginal source from a patient who has had a total hysterectomy with removal of cervix was submitted, please contact the testing laboratory for alternative testing options. For additional information, please refer to http://education.[employer]/faq/XHM159q7 (This link if provided for information/ educational purposes only.) Swab Endocervical structure / Unknown 11/16/2022 1:22 PM EST 11/17/2022 6:51 AM EST Narrative [facility] - 11/24/2022 8:30 PM EST EXPLANATORY NOTE: [...] test SurePath(TM) specimens have been determined by [facility]. The modifications have not been cleared or approved by the FDA. This assay has been validated pursuant to the CLIA regulations and is used for clinical purposes. For additional information, please refer to https://education.[employer]/faq/MEU192 (This link is being provided for information/ educational purposes only.) Cihara Ritter PA-C LAB - PATHOLOGY AND CYTOLOGY AMBULATORY Final Result [facility] [address] [id number], [facility] [address] [place] [address] from Last 3 Months or Most Recently Relevant to Health Maintenance Insurance [employer] [address] ACO Care Teams Wildlife Biology Technician Relationship Specialty Start Date End Date Chiara Ritter PA-C [address] [place] [address] PCP - General [facility] 09/05/21"
--- OUTSIDE RECORDS SUMMARY | 2025-06-02 11:48 | XMS_ITS | Clinical Summary ---
Author Organization [facility] Address [address] [place] [address] Care Team Providers Care Commodity Merchant Name Role Phone Unavailable Primary Care Provider Unavailabl e Encounters Date Type Department Care Team Description 05/19/2025 Population Health Risk Score [facility] (C3) Department [address] [id number] Provider, Population Health Generic from Last 3 Months Social History Tobacco Use Types Packs/Day Years Used Date Smoking Tobacco: Never Assessed Comments Unknown Sex and Gender Information Value Date Recorded Sex Assigned at Not on file Legal Sex Female 9:28 PM EDT Gender Identity Not on file Sexual Orientation Not on file Plan of Treatment Health Maintenance Due Date Last Done Comments Depression Screening 1981 HIV Screening 1981 SDOH Screening 1981 Disability Screening 1981 Alcohol/Substance Use Screening 1993 Tobacco Screening 1993 Family Planning (PISQ) 1996 HPV Vaccines (1 - 3-dose series) 1996 Hepatitis C Screening 1999 DTaP/Tdap/Td Vaccines (1 - Tdap) 2000 Hepatitis B Vaccines (1 of 3 - 19+ 3-dose series) 2000 Pap Smear 2002 Cervical Cancer Screening 2011 HPV/Cotest 2011 Mammogram 2021 COVID-19 Vaccine ( - 2023-2 5 season) 2024 Influenza Vaccine (#1) 2025 Zoster Vaccines (1 of 2) 2031 RSV Patients and Pa tients Aged 60 years or older (1 - 1-dose 75+ series) 2056 HIB Vaccines Aged Out No longer eligi [...] patient's age to complete this topic Meningococcal Vaccine Aged Out No roger dae eligible based on patient's age to complete this topic Pneumococcal Vaccine: Pediat rics (0 to 5 Years) and At-Risk Patients (6 to 49) Years Aged Out No longer eligible b ased on patient's age to complete this topic RSV under 20 months Aged Out No longe r eligible based on patient's age to complete this topic Rotavirus Vaccines Aged Out No longer eligible based on patient's age to complete this topic
== END 2025-06-02 11:31 | disposition home or self-care (01) ==
LOC: HO.HUSH 11:00
PROVIDERS: PCP Physician Assistant Medical; Visit Provider Nurse Practitioner Family
DX: R35.1 Nocturia (principal); R35.0 Frequency of micturition; R39.15 Urgency of urination; N39.3 Stress incontinence (female) (male); Z13.9 Encounter for screening, unspecified
CPT/HCPCS: 99213

== ENCOUNTER → 2025-06-02 11:00 | Outpatient (BNVA) | payer MEDICAID, SELFPAY | PROVIDERS: PCP Physician Assistant Medical; Visit Provider Nurse Practitioner Family | DX: R35.1 Nocturia (principal); R35.0 Frequency of micturition; R39.15 Urgency of urination; N39.3 Stress incontinence (female) (male) | CPT/HCPCS: 51798; 81003; 99212 ==